=== PATIENT | male | born 1965 | race Caucasian/White ===

== ENCOUNTER 2017-12-14 14:14 | Inpatient (IN) ==
[2017-12-14] MEDS ORDERED: Vancomycin 0 MG in 0.9 % Sodium Chloride 250 ML IVPB SCH (15:00)
--- NOTE | 2017-12-14 15:04 | Podiatry History & Physical ---
History of Present Illness Chief complaint: Infection left foot HPI: Mr. Torres is a 52 year old male with long history of an ulcer in the plantar aspect first MTPJ left foot. Patient has used custom inserts in the past. Ulceration has callused over. Subsequent formation of abscess proximal to the original ulceration. Patient with no specific complaints of chest pain nausea vomiting fever or chills but pain with his left foot which is unusual given his history of neuropathy. His diabetes of uncertain control. 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 All Systems Reviewed: The remainder of the systems were reviewed and are negative, no chest pain nausea vomiting fever chills. No bowel or bladder dysfunction. Patient does have history of paresthesias and dysesthesias numbness tingling of both feet and legs secondary to peripheral neuropathy. Past Med Surg Social Fam HX - Past Medical History Medical history: diabetes Psychiatric history: no psych history - Social History Smoking Status: Never smoker Smokeless Tobacco Status: No Alcohol use: none Drug use: none Medications and Allergies metFORMIN [Glucophage] 500 mg PO DAILY 02/13/16 [History] Lovastatin [Mevacor] 20 mg PO HS 12/12/17 [History] Sulfamethoxazole/Trimeth DS [Bactrim DS] 1 each PO BID #14 tablet 12/12/17 [Rx] Tramadol HCl [Ultram] 50 mg PO TID PRN 5 Days #12 tab 12/12/17 [Rx] 3 Allergy/AdvReac Type Severity Reaction Status Date / Time No Known Allergies Allergy Verified 12/12/17 12:01 Physical Exam - Constitutional General appearance: average body habitus, mild distress - Head Head exam: Present: atraumatic - Expanded Lower Extremities Exam Foot/Toe exam: Present: swelling (Patient with large callus and plantar aspect of the first MTPJ. With superficial debridement ulceration noted to penetrates to the subcutaneous tissue. Patient has obvious intrinsic minus with loss of muscle tone and strength of the intrinsic musculature of both feet. Consequently he exhibits hammertoe deformity bilaterally.) - Neurological Exam Neurological exam: Present: oriented X3 Additional comments: Patient exhibits loss of protective sensation 2 point determination light touch and vibration from toes to tibia bilaterally. Ongoing paresthesias and dysesthesias. - Skin Additional comments: We observe an abscess on the plantar medial aspect proximal to the first metatarsophalangeal joint with a bulla formation. Spreading cellulitis noted plantar aspect of the foot to the dorsal medial aspect of the foot. Abscess is palpable with fluctuance - Vascular Lower Extremity Vascular: decreased fine/light touch (Pedal pulses are palpable. Skin is warm to touch no cyanosis of the digits no pallor and elevation no rubor on dependency) - Ankle & Foot Foot appearance: swelling Foot swelling location: plantar, medial Results - Labs Labs: All other labs normal. - Diagnostic results Ankle/Foot x-ray: pending Assessment and Plan (1) Abscess of foot without toes, left Current visit: Yes Status: Acute Assessment: #1 abscess of left foot secondary to diabetic foot ulcer #2 diabetes with peripheral neuropathy #3 comorbidities as outlined in history. Plan: #1 limited incision of the bulla carried out in clinic to obtain initial cultures aerobe and anaerobe #2 admit to for intravenous antibiotics and formal incision and drainage #3 request internal medicine consultation for management of diabetes and comorbidities #4 discussed risks versus the benefits as well as alternatives to formal incision and drainage. Risks include but are not limited to loss of toe toes foot leg life., failure of procedure to produce desired results. The need for further surgery, DVT/blood clots. Patient voices comprehension agrees to plan of care. Patient to be admitted immediately.
--- NOTE | 2017-12-14 16:10 | Internal Medicine Consult Note ---
<Janie Uribe - Last Filed: 12/14/17 15:59> Date of Encounter: 12/14/17 Time of Encounter: 15:59 - Assessment and plan (1) Abscess of foot without toes, left Current Visit: Yes Status: Acute Assessment and plan: Dr. Najera managing foot ulcer IV Zosyn and vancomycin Monitor labs daily CBC and BMP Vital signs every shift (2) Diabetes mellitus Current Visit: Yes Status: Acute Assessment and plan: Before meals at bedtime blood sugars Glucose is controlled at this time at 140 Mild Sliding scale insulin coverage-Humalog Lipid panel in a.m. Hemoglobin A1c in a.m. Qualifiers: Diabetes mellitus type: type 2 Diabetes mellitus complication status: with skin complications Qualified Code(s): E11.620 - Type 2 diabetes mellitus with diabetic dermatitis - Time Spent With Patient Total time spent is greater than 50% in coordination of care (as documented) at patient's floor/unit and/or counseling patient: Internal Medicine - CN: HPI - Data of Consult Patient: new to practice Consult date: 12/14/17 Requesting Physician: David Najera, - Consult Narrative Reason for consult: DM History of present illness: Mr. Torres is a 52 year old male with history of foot ulcer, peripheral neuropathy and diabetes mellitus type II. Hospitalist consult for patient regarding hyperglycemia. Patient here with diabetic foot ulcer on right foot. Patient indicated he had a foot ulcer that began 1 year ago after having either a cyst or a abscess on his foot. The patient indicated the first wound healed. This past Sunday he noticed pain in the foot and then by Sunday it was burning. 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 Cultures were obtained at that time. Patient saw Dr. Najera again today in the office and was sent for IV antibiotic therapy, and incision and drainage of the abscess. The patient apparently has uncontrolled DM at home, at times. The DM will be managed by hospitalists. 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 He typically is home for only 3 hours per day. Past Med Surg Social Fam HX - Past Medical History Medical history: diabetes, hyperlipidemia Psychiatric history: no psych history - Past Surgical History Surgical History: no surgical history - Social History Smoking Status: Current some day smoker Smokeless Tobacco Status: No Alcohol use: none Drug use: none - Family History Mother Hx Family Cardiac Disorders: Yes Father Hx Family Endocrine Disorder: Yes (DM) - Constitutional Constitutional: no fever(s) - EENT Eyes: no pain Nose, mouth and throat: no sore throat - Cardiovascular Cardiovascular ROS IM: no chest pain, no dyspnea, no lightheadedness, no palpitations - Respiratory Respiratory: no cough - Gastrointestinal Gastrointestinal: no abdominal pain - Musculoskeletal Musculoskeletal ROS IM: limited range of motion (Left foot wound) - Integumentary Integumentary IM: non-healing lesions (left foot) - Neurological Neurological ROS: no abnormal movements, no confusion, no weakness - Hematologic/Lymphatic Hematologic/Lymphatic: no easy bleeding - Allergic/Immunologic Allergic/Immunologic: no throat swelling, no wheezing Internal Medicine - CN: Meds Lovastatin [Mevacor] 20 mg PO HS 12/12/17 [History] Sulfamethoxazole/Trimeth DS [Bactrim DS] 1 each PO BID #14 tablet 12/12/17 [Rx] Tramadol HCl [Ultram] 50 mg PO TID PRN 5 Days #12 tab 12/12/17 [Rx] Gabapentin [Neurontin] 100 mg PO TID 12/14/17 [History] Glimepiride [Amaryl] 1 mg PO DAILY 12/14/17 [History] HYDROcodone/Acet 5/325 mg [[place] 5-325 mg] 1 tab PO Q8H PRN 12/14/17 [History] Metformin HCl [Glucophage] 1,000 mg PO BID 12/14/17 [History] Naproxen 375 mg PO BID 12/14/17 [History] 3 Allergy/AdvReac Type Severity Reaction Status Date / Time No Known Allergies Allergy Verified 12/12/17 12:01 Internal Medicine - CN: Exam - Constitutional Vitals: Temp Pulse Resp BP Pulse Ox 98.1 F 91 20 128/91 97 12/14/17 15:38 12/14/17 15:38 12/14/17 15:38 12/14/17 15:38 12/14/17 15:38 General appearance IM: Present: A&O X 3, obese - Head Head exam: Present: atraumatic, normocephalic - Eye Eye exam: Present: normal appearance. Absent: periorbital swelling Pupils: Present: PERRL - ENT ENT exam: Present: normal exam - Respiratory Respiratory exam: Present: CTAB - Cardiovascular Cardiovascular exam IM: Present: RRR, +S1 - GI/Abdominal GI/Abdominal exam IM: Present: normal bowel sounds, no peritoneal signs. Absent : tenderness - Rectal Rectal exam: Present: deferred - Extremities Exam Extremities exam IM: Present: normal inspection, tenderness (Left foot wound), radial pulses palpable and symmetrical - Expanded Upper Extremities Exam General: Present: normal inspection - Expanded Lower Extremities Exam Lower Leg exam: Present: tenderness (Left foot wound) - Neurological Exam Neurological exam: Present: alert, oriented X3 Internal Medicine - CN: Reslt - Impressions Impressions Foot X-Ray 12/14/17 14:57 IMPRESSION: No evidence of focal soft tissue abnormality or soft tissue gas. No specific radiographic evidence of osteomyelitis. D/ / Nicho Byrne MD / Nicho Byrne MD Interpreting Provider: Nicho Byrne MD Consult Discharge Plan - Plan Referrals: Maria C Cleary CNP [Primary Care Provider] - <Gino Monteiro - Last Filed: 12/15/17 08:42> Date of Encounter: 12/14/17 - Time Spent With Patient Total time spent is greater than 50% in coordination of care (as documented) at patient's floor/unit and/or counseling patient: Internal Medicine - CN: HPI - Data of Consult Requesting Physician: David Najera, - Consult Narrative History of present illness: Mr. Torres is a 52 year old male Internal Medicine - CN: Exam - Constitutional Vitals: Temp Pulse Resp BP Pulse Ox 98.1 F 73 15 110/71 96 12/15/17 06:58 12/15/17 06:58 12/15/17 06:58 12/15/17 06:58 12/15/17 06:58 Internal Medicine - CN: Reslt - Labs CBC & Chem 7: 12/15/17 05:53 12/15/17 05:53 Labs: Short CBC 12/14/17 12/15/17 Range/Units 15:52 05:53 WBC 8.2 6.8 (4.3-11.1) K/mcL Hgb 16.0 14.9 (12.9-16.9) g/dL Hct 44.9 43.7 (37.5-50.1) % Plt Count 168 170 (140-400) K/mcL Neutrophils # 5.9 4.5 (1.6-8.9) K/mcL BMP 12/14/17 12/15/17 15:52 05:53 Sodium 135 L 137 Potassium 4.0 4.0 Chloride 102 106 Carbon Dioxide 26 24 BUN 9 11 Creatinine 0.66 L 0.73 Glucose 140 H 168 H Calcium 9.2 8.5 L - ABG Interpretation ABG results: PT/INR, D-dimer PT 11.8 Seconds (9.4-12.1) 12/14/17 15:52 - Impressions Impressions Foot X-Ray 12/14/17 14:57 IMPRESSION: No evidence of focal soft tissue abnormality or soft tissue gas. No specific radiographic evidence of osteomyelitis. D/ / 12/14/2017 15:56:22 Nicho Byrne MD / derick Interpreting Provider: Nicho Byrne MD - Attending Attestation I have personally performed a face to face evaluation on this patient. I have reviewed and agree with the care plan provided by BUSINESS PROPOSAL REP Janie Uribe. History and Exam by me shows: Mr. Torres is a 52 year old male with history of foot ulcer, peripheral neuropathy, chronic tobacco dependence and diabetes mellitus type II pt was admitted by Dr. Najera for an I & D his foot abscess. We were asked to manage his abx and blood sugars. Pt did mention his recent HbA1C 8.1 Gen: A, A, O x 3 Foot: ulcer over Left foot 1ST MTP region, also noticed loculated fluid collection / abscess over plantar region a/p 1. Acute Left foot abscess I & D by Dr. Najera empirical abx Zosyn and Vanc 2. DM2 Check HbA1C started him on ISS 3. Tobacco dependence counseled to quit on nicotine patch
[2017-12-14 16:12] LABS: Basophils # 0.1 K/mcL (0.0-0.2); Basophils % 1.1 %; Eosinophils # 0.1 K/mcL (0.0-0.6); Eosinophils % 1.3 %; Hematocrit 44.9 % (37.5-50.1); Immature Granulocytes % 0.4 % (0-4); Lymphocytes # 1.6 K/mcL (0.6-4.6); Lymphocytes % 19.1 %; Mean Corpuscular HGB Conc 35.6 g/dL (31.6-35.5); Mean Corpuscular Volume 92.6 fL (83.0-100.0); Mean Platelet Volume 10.7 fL (9.4-12.4); Monocytes # 0.6 K/mcL (0.0-1.3); Monocytes % 6.7 %; Neutrophils # 5.9 K/mcL (1.6-8.9); Platelet Count 168 K/mcL (140-400); Red Blood Count 4.85 M/mcL (4.19-5.50); Red Cell Distribution Width 12.1 % (11.5-14.5); Segmented Neutrophils % 71.4 %
[2017-12-14 16:17] LABS: INR 1.1; Prothrombin Time 11.8 Seconds (9.4-12.1)
[2017-12-14 16:24] LABS: BUN/Creatinine Ratio 14 (6-26); Blood Urea Nitrogen 9 mg/dL (6-20); Calcium 9.2 mg/dL (8.6-10.3); Carbon Dioxide 26 mEq/L (23-29); Chloride 102 mEq/L (98-107); Glucose 140 mg/dL (70-105); Osmolality,Calculated 281 (280-300); Sodium 135 mEq/L (136-145); eGFR For African Americans > 60 (> 60); eGFR For Non-African Americans > 60 (> 60)
[2017-12-14] MEDS ORDERED: Dextrose Gel 15 GM/37.5 ML TUBE PO PRN ×2 (16:35)
[2017-12-14] MEDS ORDERED: *HR* Dextrose 50 % in Water (Syg) 50 ML SYRINGE IVP PRN (16:35)
[2017-12-14] MEDS ORDERED: D5% in Water 1,000 ML IVC PRN (16:35)
[2017-12-14] MEDS ORDERED: Naloxone 0.4 MG/ML INJ IVP PRN (17:28)
[2017-12-14] MEDS: 0.9 % Sodium Chloride 1,000 ML IVC SCH (17:33)
[2017-12-14] MEDS: Piperacillin/Tazobactam 3.375 GM in 0.9 % Sodium Chloride Mini Bag 100 ML IVPB SCH (17:33)
[2017-12-14] MEDS: Nicotine 21 MG PATCH.TD24 TD SCH (19:55)
[2017-12-14] MEDS: Gabapentin 100 MG CAPSULE PO SCH (21:02)
[2017-12-14] MEDS: *HR* HYDROcodone/Acet 5/325 mg TABLET PO PRN (21:50)
[2017-12-14] MEDS: Insulin LISPRO 300 UNITS/3 ML VIAL SQ SCH (21:53)
[2017-12-15] MEDS: Piperacillin/Tazobactam 3.375 GM in 0.9 % Sodium Chloride Mini Bag 100 ML IVPB SCH ×3 (01:27→19:01)
[2017-12-15] MEDS: traMADol 50 MG TABLET PO PRN ×2 (03:57→21:30)
[2017-12-15 06:48] LABS: Basophils # 0.1 K/mcL (0.0-0.2); Basophils % 0.7 %; Eosinophils # 0.1 K/mcL (0.0-0.6); Eosinophils % 2.1 %; Hematocrit 43.7 % (37.5-50.1); Hemoglobin 14.9 g/dL (12.9-16.9); Immature Granulocytes % 0.3 % (0-4); Lymphocytes # 1.5 K/mcL (0.6-4.6); Lymphocytes % 21.7 %; Mean Corpuscular HGB Conc 34.1 g/dL (31.6-35.5); Mean Corpuscular Volume 93.8 fL (83.0-100.0); Mean Platelet Volume 10.8 fL (9.4-12.4); Monocytes # 0.6 K/mcL (0.0-1.3); Monocytes % 9.1 %; Neutrophils # 4.5 K/mcL (1.6-8.9); Platelet Count 170 K/mcL (140-400); Red Blood Count 4.66 M/mcL (4.19-5.50); Red Cell Distribution Width 12.2 % (11.5-14.5); Segmented Neutrophils % 66.1 %
[2017-12-15 07:10] LABS: BUN/Creatinine Ratio 15 (6-26); Blood Urea Nitrogen 11 mg/dL (6-20); Calcium 8.5 mg/dL (8.6-10.3); Carbon Dioxide 24 mEq/L (23-29); Chloride 106 mEq/L (98-107); Chol/HDL Ratio 4.9 (0-4.9); Glucose 168 mg/dL (70-105); Osmolality,Calculated 287 (280-300); Sodium 137 mEq/L (136-145); eGFR For African Americans > 60 (> 60); eGFR For Non-African Americans > 60 (> 60)
[2017-12-15] MEDS: Insulin LISPRO 300 UNITS/3 ML VIAL SQ SCH ×4 (07:28→21:33)
--- NOTE | 2017-12-15 07:46 | Anesthesia Evaluation PreOp ---
Date of Encounter: 12/15/17 Time of Encounter: 14:05 - Past History Planned Operation: I & D Left Foot Cardiac History: Hyperlipidemia Pulmonary History: Smoker (35 years) BRAIN SURGEON History: Denies Any Significant HX Other Medical History: Diabetes Type II Anesthesia History: No Prior Anesthetic Complications, Past Anesthesia Alcohol Use: none Drug use: none Medications and Allergies Lovastatin [Mevacor] 20 mg PO HS 12/12/17 [History] Sulfamethoxazole/Trimeth DS [Bactrim DS] 1 each PO BID #14 tablet 12/12/17 [Rx] Tramadol HCl [Ultram] 50 mg PO TID PRN 5 Days #12 tab 12/12/17 [Rx] Gabapentin [Neurontin] 100 mg PO TID 12/14/17 [History] Glimepiride [Amaryl] 1 mg PO DAILY 12/14/17 [History] HYDROcodone/Acet 5/325 mg [[place] 5-325 mg] 1 tab PO Q8H PRN 12/14/17 [History] Metformin HCl [Glucophage] 1,000 mg PO BID 12/14/17 [History] Naproxen 375 mg PO BID 12/14/17 [History] 3 Allergy/AdvReac Type Severity Reaction Status Date / Time No Known Allergies Allergy Verified 12/12/17 12:01 - Meds/Allergy Pre-op Review Medications Reviewed: Yes Allergies Reviewed: Yes Beta Blockers on Current Med List: No Anesthesia Results - Labs 12/15/17 05:53 12/15/17 05:53 Anesthesia Exam Vital Signs/O2 Sat/Glucose, Most Recent Temp Pulse Resp BP Pulse Ox 98.1 F 73 15 110/71 96 12/15/17 06:58 12/15/17 06:58 12/15/17 06:58 12/15/17 06:58 12/15/17 06:58 Blood Glucose* 175 Height: 6'2''/1.88m Weight: 288 lbs/130.7 kg NPO (# of Hours): 8 Pain Scale: 0 Pain Scale Used: Numeric (1 - 10) - HEENT Pupil (Motor): EOMI Mallampati: III Teeth: Poor dentition Oral Opening: Greater than 3 - BRAIN SURGEON LOC: Oriented BRAIN SURGEON Motor: Normal RUE, Normal LUE, Normal RLE, Normal LLE, Normal Face BRAIN SURGEON Sensory: Normal: RUE, LUE, Face, Deficit: RLE, LLE - Cardiac Rhythm: Regular Murmur: None - Pulmonary Breath Sounds: bilateral Clear Respiratory Effort: Symmetrical Anesthesia Assess/Plan ASA Score: 3 Modified Anirudh Scale for Level of Consciousness: Cooperative, oriented, and tranquil Anesthetic Plan: MAC Monitoring Plan: Standard Monitors
[2017-12-15 07:59] LABS: Estimated Average Glucose 200 mg/dl; Hemoglobin A1C 8.6 %
[2017-12-15] MEDS: Gabapentin 100 MG CAPSULE PO SCH ×3 (10:00→21:30)
[2017-12-15] MEDS: *HR* HYDROcodone/Acet 5/325 mg TABLET PO PRN ×2 (10:00→19:04)
--- NOTE | 2017-12-15 14:57 | Internal Med Progress Note ---
Date of Encounter: 12/15/17 Time of Encounter: 11:00 - Assessment and plan (1) Diabetes mellitus Current Visit: Yes Status: Acute Assessment and plan: Patient has reasonable blood sugar control presently with current regimen. Continue to monitor. All other issues as per primary service. Qualifiers: Diabetes mellitus type: type 2 Diabetes mellitus complication status: with skin complications Qualified Code(s): E11.620 - Type 2 diabetes mellitus with diabetic dermatitis - Time Spent With Patient Total time spent is greater than 50% in coordination of care (as documented) at patient's floor/unit and/or counseling patient: - Subjective Interval history: Mr. Torres is a 52 year old male with history of foot ulcer, peripheral neuropathy and diabetes mellitus type II. Hospitalist consult for patient regarding hyperglycemia. Patient here with diabetic foot ulcer on right foot. Patient indicated he had a foot ulcer that began 1 year ago after having either a cyst or a abscess on his foot. The patient indicated the first wound healed. This past Sunday he noticed pain in the foot and then by Sunday it was burning. 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 Cultures were obtained at that time. Patient saw Dr. Najera again today in the office and was sent for IV antibiotic therapy, and incision and drainage of the abscess. The patient apparently has uncontrolled DM at home, at times. The DM will be managed by hospitalists. 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 He typically is home for only 3 hours per day. 12/15: Patient states he is feeling well. Blood sugars are running in mid 100 range. Patient states he is comfortable. Eating well. - Constitutional Vitals: Temp Pulse Resp BP Pulse Ox 97.9 F 74 15 110/71 96 12/15/17 10:36 12/15/17 10:36 12/15/17 10:36 12/15/17 10:36 12/15/17 10:36 General appearance: Present: A&O X 3, obese - Head Head exam: Present: atraumatic, normocephalic - Eye Eye exam: Present: PERRL, conjuntiva pink, sclera anicteric Pupils: Present: PERRL - Neck Neck exam general surgery: Present: supple, trachea midline. Absent: lymphadenopathy - Respiratory Respiratory exam: Present: CTAB. Absent: accessory muscle use, rales, rhonchi, wheezes - Cardiovascular Cardiovascular exam: Present: RRR, +S1, +S2. Absent: diastolic murmur, gallop, rubs, systolic murmur - GI/Abdominal GI/Abdominal exam: Present: normal bowel sounds, soft, no peritoneal signs. Absent: distended, tenderness - Extremities Exam Extremities exam: Present: warm, radial pulses palpable and symmetrical. Absent : calf tenderness, cyanotic, pedal edema Additional comments: Left foot is covered with dressing - Neurological Exam Neurological exam: Present: CN II-XII intact, oriented X3, no focal deficits. Absent: pronater drift, facial droop, speech deficit - Skin Skin exam: Present: dry, intact Internal Medicine: Result - Labs CBC & Chem 7: 12/15/17 05:53 12/15/17 05:53 Labs: Short CBC 12/14/17 12/15/17 Range/Units 15:52 05:53 WBC 8.2 6.8 (4.3-11.1) K/mcL Hgb 16.0 14.9 (12.9-16.9) g/dL Hct 44.9 43.7 (37.5-50.1) % Plt Count 168 170 (140-400) K/mcL Neutrophils # 5.9 4.5 (1.6-8.9) K/mcL BMP 12/14/17 12/15/17 15:52 05:53 Sodium 135 L 137 Potassium 4.0 4.0 Chloride 102 106 Carbon Dioxide 26 24 BUN 9 11 Creatinine 0.66 L 0.73 Glucose 140 H 168 H Calcium 9.2 8.5 L - ABG Interpretation ABG results: PT/INR, D-dimer PT 11.8 Seconds (9.4-12.1) 12/14/17 15:52 - Impressions Impressions Foot X-Ray 12/14/17 14:57 IMPRESSION: No evidence of focal soft tissue abnormality or soft tissue gas. No specific radiographic evidence of osteomyelitis. D/ / 12/14/2017 15:56:22 Nicho Byrne MD / derick Interpreting Provider: Nicho Byrne MD Consult Discharge Plan - Plan Referrals: Maria C Cleary CNP [Primary Care Provider] -
--- NOTE | 2017-12-15 15:34 | Podiatry Consult Note ---
Date of Encounter: 12/15/17 Time of Encounter: 15:31 Assessment and Plan (1) Abscess of foot without toes, left Current visit: Yes Status: Acute The patient was instructed that he needs an incision and drainage of the abscess of his left foot. The patient was instructed that this may require multiple procedures and multiple washouts. Patient was understandable. Patient relates that he is ready to undergo surgical intervention as he has pain from this abscess.Patient was informed of the risks and complications of surgery. These may include but are not limited to the following; nerve damage, numbness, tingling, RSD/CRPS, loss of motor function, loss of toe, loss of limb , loss of life, ischemia, wound healing issues, infection, scarring, keloid formation, continued pain, arthritis, non-union, mal-union, prominent hardware, displaced hardware, reaction to hardware, the need to remove hardware, bruising , continued limp, the need for future surgery, over correction, under correction , chronic swelling, the need for physical therapy, stiffness of joints, ulceration, slow healing, wound dehiscence, reaction to implant, reaction to sutures. The patient was informed of the possible conservative treatments available which may include but are not limited to the following: Orthotics, bracing, non -weight bearing, physical therapy, padding, taping, steroid injections, NSAIDS, casting. The patient was given the option to seek a second opinion. It was explained that surgery is an art and not an exact science therefore results cannot be guaranteed. All the patients questions and concerns were addressed. Patient agrees to have the surgery despite the possible risks and complications. Absolutely no guarantees were given or implied. History of Present Illness Chief complaint: Left foot abscess HPI: Mr. Torres is a 52 year old male who has a left foot abscess. 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 Patient was referred to me by Dr. Najera. Past Med Surg Social Fam HX - Past Medical History Medical history: diabetes, hyperlipidemia Psychiatric history: no psych history - Past Surgical History Surgical History: no surgical history - Social History Smoking Status: Current some day smoker Smokeless Tobacco Status: No Alcohol use: none Drug use: none - Family History Mother Hx Family Cardiac Disorders: Yes Father Hx Family Endocrine Disorder: Yes (DM) Medications and Allergies Lovastatin [Mevacor] 20 mg PO HS 12/12/17 [History] Sulfamethoxazole/Trimeth DS [Bactrim DS] 1 each PO BID #14 tablet 12/12/17 [Rx] Tramadol HCl [Ultram] 50 mg PO TID PRN 5 Days #12 tab 12/12/17 [Rx] Gabapentin [Neurontin] 100 mg PO TID 12/14/17 [History] Glimepiride [Amaryl] 1 mg PO DAILY 12/14/17 [History] HYDROcodone/Acet 5/325 mg [[place] 5-325 mg] 1 tab PO Q8H PRN 12/14/17 [History] Metformin HCl [Glucophage] 1,000 mg PO BID 12/14/17 [History] Naproxen 375 mg PO BID 12/14/17 [History] 3 Allergy/AdvReac Type Severity Reaction Status Date / Time No Known Allergies Allergy Verified 12/12/17 12:01 All Systems Reviewed: The remainder of the systems were reviewed and are negative Physical Exam - Constitutional Vitals: Temp Pulse Resp BP Pulse Ox 97.9 F 74 15 110/71 96 12/15/17 10:36 12/15/17 10:36 12/15/17 10:36 12/15/17 10:36 12/15/17 10:36 General appearance: average body habitus, mild distress Exam: Constitutional General appearance: average body habitus, mild distress - Head Head exam: Present: atraumatic - Expanded Lower Extremities Exam Foot/Toe exam: Present: swelling ,ulceration noted to which penetrates to the subcutaneous tissue. Patient has obvious intrinsic loss of muscle tone and strength of the intrinsic musculature of both feet. Consequently he exhibits hammertoe deformity bilaterally.) - Neurological Exam Neurological exam: Present: oriented X3 Additional comments: Patient exhibits loss of protective sensation 2 point determination light touch and vibration from toes to tibia bilaterally. Ongoing paresthesias and dysesthesias. - Skin Additional comments: We observe an abscess on the plantar medial aspect proximal to the first metatarsophalangeal joint with a abscess and bulla formation. Spreading cellulitis noted plantar aspect of the foot to the dorsal medial aspect of the foot. Abscess is palpable with fluctuance - Vascular Lower Extremity Vascular: decreased fine/light touch (Pedal pulses are palpable. Skin is warm to touch no cyanosis of the digits no pallor and elevation no rubor on dependency) - Ankle & Foot Foot appearance: swelling Foot swelling location: plantar, medial Results - Labs Result Diagrams: 12/15/17 05:53 12/15/17 05:53 Labs: Abnormal lab results ESR 46 mm/hr (0-10) H 12/14/17 15:52 Glucose 168 mg/dL (70-105) H 12/15/17 05:53 POC Glucose 113 mg/dL (70-99) H 12/14/17 21:52 Hemoglobin A1c 8.6 % (-5.6) H 12/15/17 05:53 Calcium 8.5 mg/dL (8.6-10.3) L 12/15/17 05:53 C-Reactive Protein 64 mg/L (Less than 10) H 12/14/17 15:52 Triglycerides 175 mg/dL (< 150) H 12/15/17 05:53 VLDL Cholesterol, Calc 35 mg/dL (< 31) H 12/15/17 05:53 HDL Cholesterol 27 mg/dL (40-59) L 12/15/17 05:53 H & H 12/14/17 12/15/17 Range/Units 15:52 05:53 Hgb 16.0 14.9 (12.9-16.9) g/dL Hct 44.9 43.7 (37.5-50.1) % All other labs normal. Consult Discharge Plan - Plan Referrals: Maria C Cleary CNP [Primary Care Provider] -
[2017-12-15] MEDS ORDERED: *HR* Midazolam HCl 2 MG/2 ML VIAL ONE (15:35)
[2017-12-15] MEDS ORDERED: Propofol 500 MG/50 ML INFUS..BTL ONE (15:35)
[2017-12-15] MEDS ORDERED: Lidocaine 1% 20 ML MDV ONE ×2 (15:40→16:03)
--- NOTE | 2017-12-15 16:52 | Anesthesia Evaluation Post Op ---
Date of Encounter: 12/15/17 Time of Encounter: 16:51 - Vital Signs Vital Signs: 3 Vital Signs BP 101/67 Pulse 71 Resp 18 O2 Sat 95% - Lungs Lungs: Clear Ascult./Percussion - Airway Airway: Non-obstructed - Cardiovascular Regular Rate - Mental Status Mental Status: Asleep with brisk response to light stimulation - Pain Pain Scale: 0 Pain Scale used: Numeric (1 - 10) - Nausea Vomiting Nausea Vomiting: Not Present - Hydration Hydration: NPO, Has not voided - Discharge PostOp Status: Transfer Patient to floor
[2017-12-15] MEDS: Nicotine 21 MG PATCH.TD24 TD SCH (19:00)
[2017-12-15] MEDS: 0.9 % Sodium Chloride 1,000 ML IVC SCH ×2 (19:30→21:29)
[2017-12-16] MEDS: Piperacillin/Tazobactam 3.375 GM in 0.9 % Sodium Chloride Mini Bag 100 ML IVPB SCH ×3 (02:11→20:07)
[2017-12-16] MEDS: *HR* HYDROcodone/Acet 5/325 mg TABLET PO PRN ×2 (04:26→23:01)
[2017-12-16 05:34] LABS: Basophils # 0.1 K/mcL (0.0-0.2); Basophils % 0.9 %; Eosinophils # 0.2 K/mcL (0.0-0.6); Eosinophils % 2.3 %; Hematocrit 41.5 % (37.5-50.1); Hemoglobin 14.2 g/dL (12.9-16.9); Immature Granulocytes % 0.3 % (0-4); Lymphocytes # 2.2 K/mcL (0.6-4.6); Lymphocytes % 29.6 %; Mean Corpuscular HGB Conc 34.2 g/dL (31.6-35.5); Mean Corpuscular Hemoglobin 31.8 pg (28.0-33.3); Mean Platelet Volume 10.5 fL (9.4-12.4); Monocytes # 0.6 K/mcL (0.0-1.3); Monocytes % 8.4 %; Neutrophils # 4.4 K/mcL (1.6-8.9); Platelet Count 163 K/mcL (140-400); Red Blood Count 4.46 M/mcL (4.19-5.50); Red Cell Distribution Width 12.2 % (11.5-14.5); Segmented Neutrophils % 58.5 %
[2017-12-16 05:57] LABS: BUN/Creatinine Ratio 19 (6-26); Blood Urea Nitrogen 15 mg/dL (6-20); Calcium 8.2 mg/dL (8.6-10.3); Carbon Dioxide 26 mEq/L (23-29); Chloride 105 mEq/L (98-107); Glucose 178 mg/dL (70-105); Osmolality,Calculated 289 (280-300); Potassium 3.9 mEq/L (3.5-5.1); Sodium 137 mEq/L (136-145); eGFR For African Americans > 60 (> 60); eGFR For Non-African Americans > 60 (> 60)
[2017-12-16] MEDS: Insulin LISPRO 300 UNITS/3 ML VIAL SQ SCH ×4 (08:12→20:08)
[2017-12-16] MEDS: Gabapentin 100 MG CAPSULE PO SCH ×3 (08:21→20:09)
[2017-12-16] MEDS: traMADol 50 MG TABLET PO PRN (12:04)
--- NOTE | 2017-12-16 12:07 | Internal Med Progress Note ---
Date of Encounter: 12/16/17 Time of Encounter: 10:00 - Assessment and plan (1) Diabetes mellitus Current Visit: Yes Status: Acute Assessment and plan: Patient has reasonable blood sugar control presently with current regimen. Continue to monitor. All other issues as per primary service. Qualifiers: Diabetes mellitus type: type 2 Diabetes mellitus complication status: with skin complications Qualified Code(s): E11.620 - Type 2 diabetes mellitus with diabetic dermatitis - Time Spent With Patient Total time spent is greater than 50% in coordination of care (as documented) at patient's floor/unit and/or counseling patient: - Subjective Interval history: Mr. Torres is a 52 year old male with history of foot ulcer, peripheral neuropathy and diabetes mellitus type II. Hospitalist consult for patient regarding hyperglycemia. Patient here with diabetic foot ulcer on right foot. Patient indicated he had a foot ulcer that began 1 year ago after having either a cyst or a abscess on his foot. The patient indicated the first wound healed. This past Sunday he noticed pain in the foot and then by Sunday it was burning. Patient saw his chief service observer on and another abscess was discovered. Cultures were obtained at that time. Patient saw Dr. Najera again today in the office and was sent for IV antibiotic therapy, and incision and drainage of the abscess. The patient apparently has uncontrolled DM at home, at times. The DM will be managed by hospitalists. 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 He typically is home for only 3 hours per day. 12/16: Patient states he is feeling well. Blood sugars are running in mid 100 range. Patient states he is comfortable. Eating well. - Constitutional Vitals: Temp Pulse Resp BP Pulse Ox 97.7 F 68 15 122/79 95 12/16/17 10:33 12/16/17 10:33 12/16/17 10:33 12/16/17 10:33 12/16/17 10:33 General appearance: Present: A&O X 3, obese - Head Head exam: Present: atraumatic, normocephalic - Eye Eye exam: Present: PERRL, conjuntiva pink, sclera anicteric Pupils: Present: PERRL - Neck Neck exam general surgery: Present: supple, trachea midline. Absent: lymphadenopathy - Respiratory Respiratory exam: Present: CTAB. Absent: accessory muscle use, rales, rhonchi, wheezes - Cardiovascular Cardiovascular exam: Present: RRR, +S1, +S2. Absent: diastolic murmur, gallop, rubs, systolic murmur - GI/Abdominal GI/Abdominal exam: Present: normal bowel sounds, soft, no peritoneal signs. Absent: distended, tenderness - Extremities Exam Extremities exam: Present: warm, radial pulses palpable and symmetrical. Absent : calf tenderness, cyanotic, pedal edema Additional comments: Left foot Vac - Neurological Exam Neurological exam: Present: CN II-XII intact, oriented X3, no focal deficits. Absent: pronater drift, facial droop, speech deficit - Skin Skin exam: Present: dry, intact Internal Medicine: Result - Labs CBC & Chem 7: 12/16/17 05:08 12/16/17 05:08 Labs: Short CBC 12/16/17 Range/Units 05:08 WBC 7.5 (4.3-11.1) K/mcL Hgb 14.2 (12.9-16.9) g/dL Hct 41.5 (37.5-50.1) % Plt Count 163 (140-400) K/mcL Neutrophils # 4.4 (1.6-8.9) K/mcL BMP 12/16/17 05:08 Sodium 137 Potassium 3.9 Chloride 105 Carbon Dioxide 26 BUN 15 Creatinine 0.79 Glucose 178 H Calcium 8.2 L - ABG Interpretation ABG results: PT/INR, D-dimer PT 11.8 Seconds (9.4-12.1) 12/14/17 15:52 - VTE Documentation of Mechanical Device: Intermittent pneumatic compression device Consult Discharge Plan - Plan Referrals: Maria C Cleary, [employer]PER [Primary Care Provider] -
--- NOTE | 2017-12-16 17:47 | Operative Note ---
Date of procedure: 12/15/17 Pre-op diagnosis: Left foot abscess with ulceration Post-op diagnosis: same Procedure: Incision and drainage/debridement of necrotic nonviable tissue, left foot. Implants: None Anesthesia: MAC Surgeon: Wenceslao Whittington Was there an pizza hut assistant present: No Estimated blood loss (cc): 5 Specimen: Cultures Condition: stable Disposition: PACU Procedure in Detail: The patient was administered IV antibiotics. The patient was transported to the operative room and placed on operating table. Following anesthesia the extremity was scrubbed prepped and draped in the usual aseptic fashion. A timeout was performed. An incision was made and deepened through subcutaneous tissue with care taken to identify and retract all vital neurovascular structures. The incision was along the plantar medial aspect of the foot. The incision was approximately 3 cm in length along the plantar aspect of the abscess site. As the incision was deepened purulence was expressed and cultured. There is noted to be necrotic nonviable tissue area the , necrotic, nonviable tissue was sharply debrided with a 15 blade scalpel and a Appetite[employer]ix debrider. After the debridement was performed consisting of epidermis, dermis, subcutaneous, fascia the site was irrigated with copious amounts of normal saline and partially closed on the distal aspect of the incision. A small opening was left in the proximal portion of the incision for a wound VAC. A wound VAC was placed. The attention was then directed to the ulceration site sub-first metatarsal phalangeal joint, left, that was opened a few days prior in clinic by Dr. Najera and debrided. The site was noted to be small and approximately 4 mm in diameter. The periphery of the ulceration site was debrided of all necrotic, nonviable tissue. The debridement consisted of dermis, epidermis, subcutaneous , fascia. 2 semi-elliptical converging incisions were made surrounding the ulceration to aid in closure. The site was then irrigated with copious amounts of normal saline. Delayed primary closure was performed. The site was dressed with Adaptic, 4 x 4. The patient tolerated the procedure and anesthesia well and was transported to the recovery room with vital signs stable and vascular status intact to both feet. The patient will need to remain nonweightbearing. The patient will need at least 2 weeks of IV antibiotics. No bony involvement was noted. We will await further cultures. The wound VAC will need to be changed every 2 days or at least every 72 hours.
[2017-12-16] MEDS: 0.9 % Sodium Chloride 1,000 ML IVC SCH (19:52)
[2017-12-16] MEDS: Nicotine 21 MG PATCH.TD24 TD SCH (20:07)
--- NOTE | 2017-12-17 00:07 | Podiatry Progress Note ---
Date of Encounter: 12/16/17 Time of Encounter: 12:00 - Assessment and Plan (1) Abscess of foot without toes, left Current Visit: Yes Status: Acute The patient will need to remain nonweightbearing. The patient will need his wound VAC changed on Sunday morning by the nursing staff. Patient will likely need a pain pill prior to. Patient will possibly need another washout on Sunday. The patient will need at least 2 weeks of IV antibiotic therapy due to the severity of the infection. Patient will need to stay off work until the site heels which will be at least 3 weeks. The patient will require ongoing wound VAC changes Sunday, Sunday, Sunday. There is a slight chance that the wound VAC will be removed prior to discharge. Currently awaiting cultures. Subjective Principal diagnosis: Left foot abscess Interval history: Patient relates mildly painful incision sites. Patient denies any new signs or symptoms. Objective - Vital Signs Vital Signs: Vital Signs Temp Pulse Resp BP Pulse Ox 12/16/17 23:40 98.7 F 92 17 128/76 93 12/16/17 20:33 95 12/16/17 19:25 98.5 F 95 17 130/78 95 12/16/17 14:33 98.1 F 69 18 119/73 94 12/16/17 10:33 97.7 F 68 15 122/79 95 12/16/17 07:30 97.8 F 68 18 104/68 94 12/16/17 04:21 97.8 F 70 16 117/74 94 Intake and Output 12/16/17 12/16/17 12/17/17 15:59 23:59 07:59 Intake Total 570 / 570 220 / 220 Output Total 325 / 325 2200 / 2200 Balance 245 / 245 -1979 / Intake: IV Fluids 250 / 250 100 / 100 Zosyn 3.375 GM In 0.9 % Sodium 100 / 100 Chloride (Mini-Bag +) 100 ML @ 25 mls/hr IVPB Q8H JORGE Rx#: [id number] Vancocin 1,500 MG In 0.9 % 250 / 250 Sodium Chloride 250 ML @ 166.67 mls/hr IVPB Q12H JORGE Rx#: [id number] Oral 320 / 320 120 / 120 Output: Urine 325 / 325 2200 / 2200 Other: Meal Lunch Dinner Percent of Meal Consumed 100% 50% # Voids 3 Blood Glucose* 208 186 - Exam Exam: VAC intact, neurovascular status intact, awaiting cultures, decreased erythema. - Lab Result Diagrams: 12/17/17 06:03 12/17/17 06:03 Labs: Abnormal lab results ESR 46 mm/hr (0-10) H 12/14/17 15:52 Glucose 178 mg/dL (70-105) H 12/16/17 05:08 POC Glucose 152 mg/dL (70-99) H 12/16/17 16:05 Hemoglobin A1c 8.6 % (-5.6) H 12/15/17 05:53 Calcium 8.2 mg/dL (8.6-10.3) L 12/16/17 05:08 C-Reactive Protein 64 mg/L (Less than 10) H 12/14/17 15:52 Triglycerides 175 mg/dL (< 150) H 12/15/17 05:53 VLDL Cholesterol, Calc 35 mg/dL (< 31) H 12/15/17 05:53 HDL Cholesterol 27 mg/dL (40-59) L 12/15/17 05:53 - VTE Documentation of Mechanical Device: Intermittent pneumatic compression device Consult Discharge Plan - Plan Referrals: Maria C Cleary, ESAU [Primary Care Provider] -
[2017-12-17] MEDS: Piperacillin/Tazobactam 3.375 GM in 0.9 % Sodium Chloride Mini Bag 100 ML IVPB SCH ×2 (01:59→10:43)
[2017-12-17] MEDS: traMADol 50 MG TABLET PO PRN ×2 (04:36→14:50)
[2017-12-17] MEDS: 0.9 % Sodium Chloride 1,000 ML IVC SCH (06:04)
[2017-12-17 07:07] LABS: Basophils # 0.1 K/mcL (0.0-0.2); Basophils % 0.9 %; Eosinophils # 0.2 K/mcL (0.0-0.6); Eosinophils % 2.6 %; Hematocrit 41.8 % (37.5-50.1); Hemoglobin 14.3 g/dL (12.9-16.9); Immature Granulocytes % 0.3 % (0-4); Lymphocytes % 26.7 %; Mean Corpuscular HGB Conc 34.2 g/dL (31.6-35.5); Mean Corpuscular Hemoglobin 31.5 pg (28.0-33.3); Mean Corpuscular Volume 92.1 fL (83.0-100.0); Mean Platelet Volume 10.9 fL (9.4-12.4); Monocytes # 0.6 K/mcL (0.0-1.3); Monocytes % 7.7 %; Neutrophils # 4.6 K/mcL (1.6-8.9); Platelet Count 172 K/mcL (140-400); Red Blood Count 4.54 M/mcL (4.19-5.50); Red Cell Distribution Width 12.2 % (11.5-14.5); Segmented Neutrophils % 61.8 %
[2017-12-17 07:21] LABS: BUN/Creatinine Ratio 18 (6-26); Blood Urea Nitrogen 12 mg/dL (6-20); Calcium 8.6 mg/dL (8.6-10.3); Carbon Dioxide 25 mEq/L (23-29); Chloride 105 mEq/L (98-107); Glucose 227 mg/dL (70-105); Osmolality,Calculated 291 (280-300); Potassium 4.2 mEq/L (3.5-5.1); Sodium 137 mEq/L (136-145); eGFR For African Americans > 60 (> 60); eGFR For Non-African Americans > 60 (> 60)
[2017-12-17] MEDS: Insulin LISPRO 300 UNITS/3 ML VIAL SQ SCH ×4 (09:30→21:45)
[2017-12-17] MEDS: Gabapentin 100 MG CAPSULE PO SCH ×3 (09:31→20:11)
[2017-12-17] MEDS: *HR* HYDROcodone/Acet 5/325 mg TABLET PO PRN ×2 (09:40→17:23)
--- NOTE | 2017-12-17 16:28 | Electrocardiograph Report ---
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
--- NOTE | 2017-12-17 16:52 | Internal Med Progress Note ---
Date of Encounter: 12/17/17 Time of Encounter: 16:49 - Assessment and plan (1) Abscess of foot without toes, left Current Visit: Yes Status: Acute Assessment and plan: s/p I & D Wound vac on Wound cx no growth so far Talked to Sessions about abx choice will d/c him to ECF with IV Levaquin x 2 weeks course with PO Bactrim x 2 weeks Abx prescription given to CM Will sign off for now.. please call use, if you have any questions regarding discharge (2) Diabetes mellitus Current Visit: Yes Status: Acute Assessment and plan: Improved and stable BS HbA1C 8.6 Cont ISS Can use PO meds when he goes home Qualifiers: Diabetes mellitus type: type 2 Diabetes mellitus complication status: with skin complications Qualified Code(s): E11.620 - Type 2 diabetes mellitus with diabetic dermatitis - Time Spent With Patient Total time spent is greater than 50% in coordination of care (as documented) at patient's floor/unit and/or counseling patient: - Subjective Interval history: Pt states he is feeling lot better Denied any CP / SOB His Foot pain also better No fever / chills - Constitutional Vitals: Temp Pulse Resp BP Pulse Ox 98.0 F 77 16 121/70 96 12/17/17 16:08 12/17/17 16:08 12/17/17 16:08 12/17/17 16:08 12/17/17 16:08 General appearance: Present: A&O X 3, obese - Head Head exam: Present: atraumatic, normal inspection - Neck Neck exam general surgery: Present: supple - Respiratory Respiratory exam: Present: decreased breath sounds. Absent: rales, respiratory distress, rhonchi, wheezes - Cardiovascular Cardiovascular exam: Present: RRR, +S1, +S2. Absent: tachycardia - GI/Abdominal GI/Abdominal exam: Present: normal bowel sounds, soft. Absent: rebound, rigid, tenderness - Extremities Exam Extremities exam: Absent: calf tenderness, pedal edema, tenderness Additional comments: Wound vac on Rt foot..Improved erythema and swelling of lt foot - Back Exam Back exam: Absent: CVA tenderness (L), CVA tenderness (R) - Neurological Exam Neurological exam: Present: alert, oriented X3 Internal Medicine: Result - Labs CBC & Chem 7: 12/17/17 06:03 12/17/17 06:03 Labs: Short CBC 12/17/17 Range/Units 06:03 WBC 7.4 (4.3-11.1) K/mcL Hgb 14.3 (12.9-16.9) g/dL Hct 41.8 (37.5-50.1) % Plt Count 172 (140-400) K/mcL Neutrophils # 4.6 (1.6-8.9) K/mcL BMP 12/17/17 06:03 Sodium 137 Potassium 4.2 Chloride 105 Carbon Dioxide 25 BUN 12 Creatinine 0.65 L Glucose 227 H Calcium 8.6 - ABG Interpretation ABG results: PT/INR, D-dimer PT 11.8 Seconds (9.4-12.1) 12/14/17 15:52 - VTE Documentation of Mechanical Device: Venous foot pump, device Consult Discharge Plan - Plan Referrals: Maria C Cleary, ESAU [Primary Care Provider] -
[2017-12-17] MEDS: Levofloxacin 750 MG/150 ML 750 MG/150 ML BAG IVPB SCH ×2 (18:14→18:21)
[2017-12-17] MEDS ORDERED: Lidocaine -MPF 1% 5 ML AMPUL INFILT ONE (18:46)
[2017-12-17] MEDS ORDERED: levoFLOXacin 750 MG TABLET PO ONE (18:49)
[2017-12-17] MEDS: Nicotine 21 MG PATCH.TD24 TD SCH (20:11)
[2017-12-17] MEDS: Sulfamethoxazole/Trimeth DS 1 EACH TABLET PO SCH (20:11)
[2017-12-18] MEDS: traMADol 50 MG TABLET PO PRN ×2 (02:43→17:36)
[2017-12-18] MEDS: *HR* Enoxaparin 40 MG/0.4 ML SYRINGE SQ SCH (06:41)
[2017-12-18] MEDS ORDERED: Aminoglycoside Consult 1 EACH MC ONE (07:02)
[2017-12-18] MEDS: Insulin LISPRO 300 UNITS/3 ML VIAL SQ SCH ×4 (08:31→21:00)
[2017-12-18] MEDS: Sulfamethoxazole/Trimeth DS 1 EACH TABLET PO SCH ×2 (08:32→20:09)
[2017-12-18] MEDS: Gabapentin 100 MG CAPSULE PO SCH ×3 (08:32→20:09)
[2017-12-18] MEDS: *HR* HYDROcodone/Acet 5/325 mg TABLET PO PRN (11:55)
[2017-12-18] MEDS: Levofloxacin 750 MG/150 ML 750 MG/150 ML BAG IVPB SCH (11:57)
--- NOTE | 2017-12-18 14:54 | Discharge Summary ---
Date of Encounter: 12/18/17 Time of Encounter: 12:00 - NOTES TO OUTPATIENT PROVIDER Notes to Outpatient Provider: Will need to follow up with in podiatry clinic 1 week after discharge. Follow up with PCP after discharge Orders not resulted at time of discharge: Pending orders 12/15/17 17:16 Culture,Anaerobic [RM] Routine - Discharge Diagnosis (1) Abscess of foot without toes, left Priority: Primary Status: Acute Comments: Incision and drainage/debridement of necrotic nonviable tissue, left foot. 12/15 The patient will need to remain nonweightbearing. Patients wound vac was removed to be changed at bedside, patient had pain medication 20 min prior to removal, patient refused reapplication of wound vac, refused packing with mesalt- Explained this could delay healing or cause improper healing causing further surgical intervention, delayed healing, continued infection, loss of limb, sepsis or Verbalized understanding Does not want wound vac replaced Patient was very verbal and angry with any light touch of his foot Cleansed with saline, refused to allow foot to be touched to be painted with betadine, adaptic, 4x4 and kerlix applied for protection Will write orders for daily change Patient will possibly need another washout on Sunday. The patient will need at least 2 weeks of IV antibiotic therapy due to the severity of the infection. Patient will need to stay off work until the site heals which will be at least 3 weeks. Per internal medicine: will d/c him to ECF with IV Levaquin x 2 weeks course with PO Bactrim x 2 weeks - prescriptions printed Procedures and tests throughout hospitalization: Foot X-Ray 12/14/17 14:57 IMPRESSION: No evidence of focal soft tissue abnormality or soft tissue gas. No specific radiographic evidence of osteomyelitis. D/ / 12/14/2017 15:56:22 Nicho Byrne MD / derick Interpreting Provider: Nicho Byrne MD Labs on day of discharge: Labs from last 24 hours 12/18/17 12/17/17 12/17/17 07:44 19:57 16:12 POC Glucose 166 H 212 H 175 H 12/17/17 12/17/17 12:12 07:57 POC Glucose 162 H 163 H Preliminary micro results at discharge 12/15/17 17:16 Anaerobic Culture - Preliminary Left Foot At this time, no anaerobic growth is present. The culture will be finalized after 5 days of incubation. - Impressions ITS Impressions Foot X-Ray 12/14/17 14:57 IMPRESSION: No evidence of focal soft tissue abnormality or soft tissue gas. No specific radiographic evidence of osteomyelitis. D/ / 12/14/2017 15:56:22 Nicho Byrne MD / derick Interpreting Provider: Nicho Byrne MD - Hospital Course Hospital course: Mr. Torres is a 52 year old male who was admitted to [facility] on 12/14/[address] Najera. Patient was admitted for an ulcer to the left foot first mtpj. Hospitalist services were contacted for medical management and Zosyn and vancomycin were started. Dr. campbell was consulted on 12/15/2017 for surgical management of ulceration of left foot. On 12/15/2017 and I&D was completed of the left foot ulceration for removal and necrotic and nonviable tissue and open wound VAC was placed this time. On 12/18/2017 wound VAC was due to be changed. Upon removal of the wound VAC per Chichi Caputo CNP , patient refused to have wound VAC replaced. Patient was given pain pill 20 minutes prior to procedure. Patient states he cannot tolerate the pain. Patient was advised of possible complications of removal of wound VAC without replacement. Patient also refused packing with iodoform gauze. Patient again instructed a possible complications including loss of limb continued infection and . Cleansed site with betadine and adaptic and 4x4 was applied. Patient will be discharged on IV Levaquin prescription was written per internal medicine. Patient will need to follow up next week with Dr. campbell in the clinic. Patient will possibly need a second washout. Patient will be discharged in stable condition. No issues are noted at this time. Vital signs are stable lab work is stable at this time. Time spent discussing smoking cessation with patient: 3 to 10 minutes - Time Spent with Patient Total time spent providing and/or coordinating discharge services: Greater than 30 minutes Specific discharge activities: NWB of the left foot - Discharge Medications Prescriptions: HYDROcodone/Acet 5/325 mg [[place] 5-325 mg] 1 tab PO Q8H PRN 5 Days #15 tablet PRN Reason: Pain Levofloxacin 750 MG/150 ML [Levaquin Premix 750mg/150 mL] 750 mg IVPB DAILY #13 bag Sulfamethoxazole/Trimeth DS [Bactrim Ds] 1 each PO BID #26 tablet Home Medications: Lovastatin [Mevacor] 20 mg PO HS 12/12/17 [History] Gabapentin [Neurontin] 100 mg PO TID 12/14/17 [History] Glimepiride [Amaryl] 1 mg PO DAILY 12/14/17 [History] Metformin HCl [Glucophage] 1,000 mg PO BID 12/14/17 [History] HYDROcodone/Acet 5/325 mg [[place] 5-325 mg] 1 tab PO Q8H PRN 5 Days #15 tablet [Rx] Levofloxacin 750 MG/150 ML [Levaquin Premix 750mg/150 mL] 750 mg IVPB DAILY #13 bag 12/17/17 [Rx] Nicotine Patch [Nicoderm] 21 mg TD Q24H patch.td24 12/17/17 [Rx] Sulfamethoxazole/Trimeth DS [Bactrim Ds] 1 each PO BID #26 tablet 12/17/17 [Rx] Allergies/Adverse Reactions: 3 Allergy/AdvReac Type Severity Reaction Status Date / Time No Known Allergies Allergy Verified 12/12/17 12:01 Date of admission: 12/16/17 16:01 Primary care physician: Maria C Cleary Consults: 12/14/17 14:54 Consult to Hospitalist [CONS] Routine Consulting Provider: Hospitalist Stepan Reason for Consult: Diabetes mellitus type 2 with multiple comorbidities Time Notified: 14:56 Call Completed: Yes 12/14/17 16:35 Consult to Diabetes Education [CONS] Routine Comment: Reason for Consult: Diet education. 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 12/17/17 18:56 Consult to Invasive Line Access Team [CONS] Routine Reason for Consult: fdc antibiotics Line Type: EPIV 12/18/17 09:00 Consult to Invasive Line Access Team [CONS] Routine Reason for Consult: Picc Line Insertion Line Type: PICC Discharging clinician: Lia Caputo Anticipated date of discharge: 12/18/17 - Patient Status Disposition: Transfer SNF Condition: Good Functional capacity at discharge: uses cane/walker Overall status at discharge: patient is progressing back to baseline - Discharge Instructions Follow Up With: Wenceslao Campbell DPM [Partnered Physician] - 12/26/17 9:15 am Additional Instructions: Will need to follow up with podiatryDr.Sessions 1 week after discharge Possible plan to return to surgery next sunday - Diet and Activity Activity: other (NWB LLE) Diet: diabetic diet - VTE Documentation of Mechanical Device: Venous foot pump, device
--- NOTE | 2017-12-18 15:05 | Physician Discharge Referral ---
ExtendedCare Referral Info Transfer To: ecf Provider in Charge after Transfer: PCP Institutional Level of Care: Skilled - Diagnosis (1) Abscess of foot without toes, left Status: Acute Prognosis: Good Aware of Diagnosis: Patient Aware of Prognosis: Patient - Transfer Medications Prescriptions: HYDROcodone/Acet 5/325 mg [[place] 5-325 mg] 1 tab PO Q8H PRN 5 Days #15 tablet PRN Reason: Pain Levofloxacin 750 MG/150 ML [Levaquin Premix 750mg/150 mL] 750 mg IVPB DAILY #13 bag Sulfamethoxazole/Trimeth DS [Bactrim Ds] 1 each PO BID #26 tablet Home Medications: Lovastatin [Mevacor] 20 mg PO HS 12/12/17 [History] Gabapentin [Neurontin] 100 mg PO TID 12/14/17 [History] Glimepiride [Amaryl] 1 mg PO DAILY 12/14/17 [History] Metformin HCl [Glucophage] 1,000 mg PO BID 12/14/17 [History] HYDROcodone/Acet 5/325 mg [[place] 5-325 mg] 1 tab PO Q8H PRN 5 Days #15 tablet [Rx] Levofloxacin 750 MG/150 ML [Levaquin Premix 750mg/150 mL] 750 mg IVPB DAILY #13 bag 12/17/17 [Rx] Nicotine Patch [Nicoderm] 21 mg TD Q24H patch.td24 12/17/17 [Rx] Sulfamethoxazole/Trimeth DS [Bactrim Ds] 1 each PO BID #26 tablet 12/17/17 [Rx] Allergies/Adverse Reactions: 3 Allergy/AdvReac Type Severity Reaction Status Date / Time No Known Allergies Allergy Verified 12/12/17 12:01 - Respiratory Orders Smoking Cessation: Smoking cessation has been advised. For more information, call the [place] Tobacco Quit Line at 0-244-YNMJ-NOW. - Advance Directives Code Status: Full Code - Mobility Orders Chair - Rehabiliation Orders Rehab Potential: Good Rehab Orders: Evaluation for Physical Therapy Other: nonweightbearing to affected foot - Treatments List/Other: change dressings daily with wet to dry dressings. - Diet Orders Regular CERTIFICATION: I certify that the transfer of the above named patient to an Extended Care Facility is necessary for the continuing treatment of the diagnosis listed. The above information is true and accurate reflection of patient's current condition. yes Confidential - Redisclosure prohibited without a patient's written consent.
[2017-12-18] MEDS: Nicotine 21 MG PATCH.TD24 TD SCH (20:09)
[2017-12-19] MEDS: *HR* HYDROcodone/Acet 5/325 mg TABLET PO PRN ×3 (00:20→23:02)
[2017-12-19] MEDS: *HR* Enoxaparin 40 MG/0.4 ML SYRINGE SQ SCH (05:54)
[2017-12-19] MEDS: Levofloxacin 750 MG/150 ML 750 MG/150 ML BAG IVPB SCH (08:07)
[2017-12-19] MEDS: Sulfamethoxazole/Trimeth DS 1 EACH TABLET PO SCH ×2 (08:07→20:56)
[2017-12-19] MEDS: Gabapentin 100 MG CAPSULE PO SCH ×3 (08:07→20:56)
[2017-12-19] MEDS: Insulin LISPRO 300 UNITS/3 ML VIAL SQ SCH ×4 (08:08→20:57)
[2017-12-19] MEDS: traMADol 50 MG TABLET PO PRN (14:21)
[2017-12-19] MEDS: Pantoprazole 40 MG VIAL IVP SCH (20:54)
[2017-12-19] MEDS: Nicotine 21 MG PATCH.TD24 TD SCH (20:54)
[2017-12-20] MEDS: traMADol 50 MG TABLET PO PRN ×2 (01:44→15:10)
[2017-12-20] MEDS: *HR* Enoxaparin 40 MG/0.4 ML SYRINGE SQ SCH (05:21)
[2017-12-20] MEDS: Insulin LISPRO 300 UNITS/3 ML VIAL SQ SCH ×2 (08:14→12:02)
[2017-12-20] MEDS: Sulfamethoxazole/Trimeth DS 1 EACH TABLET PO SCH (08:15)
[2017-12-20] MEDS: Gabapentin 100 MG CAPSULE PO SCH (08:15)
[2017-12-20] MEDS: Levofloxacin 750 MG/150 ML 750 MG/150 ML BAG IVPB SCH (08:15)
[2017-12-20] MEDS: Pantoprazole 40 MG VIAL IVP SCH (08:15)
[2017-12-20] MEDS: *HR* HYDROcodone/Acet 5/325 mg TABLET PO PRN (10:24)
[2017-12-20 10:40] VITALS: BP 108/71
== END 2017-12-20 15:52 | DRG 364 ==
LOC: 3ANU → SUATTDRO 12-16 16:01
PROVIDERS: ADMIT Podiatrist Foot Surgery; ATTEND Family Medicine

== ENCOUNTER 2020-01-27 13:38 | Observation (INO) ==
[2020-01-27] MEDS ORDERED: methocarbamoL 750 MG TABLET PO PRN (15:41)
[2020-01-27] MEDS ORDERED: Ondansetron 4 MG/2 ML VIAL IVP PRN (15:42)
[2020-01-27] MEDS ORDERED: MOM Conc 10 ML UD.LIQ PO PRN (15:42)
[2020-01-27] MEDS ORDERED: Naloxone 0.4 MG/ML INJ IVP PRN (15:42)
[2020-01-27] MEDS ORDERED: *HR* Promethazine 25 MG/ML VIAL IVP PRN (15:42)
[2020-01-27] MEDS ORDERED: Mag Hydrox/Al Hydrox/Simeth 30 ML UDC PO PRN (15:42)
[2020-01-27] MEDS ORDERED: Dextrose Gel 15 GM/37.5 ML TUBE PO PRN ×2 (15:44)
[2020-01-27] MEDS ORDERED: D5% in Water 1,000 ML IVC PRN (15:44)
[2020-01-27] MEDS ORDERED: *HR* Dextrose 50 % in Water (Vial) 50 ML VIAL IVP PRN (15:44)
[2020-01-27] MEDS ORDERED: Perflutren Lipid Microsphere 1.3 ML in 0.9 % Sodium Chloride 8.7 ML IVP PRN (15:46)
[2020-01-27] MEDS: *HR* Heparin 5,000 UNIT/ML VIAL SQ SCH (16:39)
[2020-01-27] MEDS: Insulin LISPRO 300 UNITS/3 ML VIAL SQ SCH (17:45)
[2020-01-27] MEDS ORDERED: Insulin LISPRO 300 UNITS/3 ML VIAL SQ SCH (21:00)
[2020-01-28 03:22] LABS: BUN/Creatinine Ratio 16 (6-26); Blood Urea Nitrogen 10 mg/dL (6-20); Calcium 8.5 mg/dL (8.6-10.3); Carbon Dioxide 26 mEq/L (23-29); Chloride 106 mEq/L (98-107); Chol/HDL Ratio 5.3 (0-4.9); Cholesterol 149 mg/dL (< 200); Glucose 181 mg/dL (70-105); HDL Cholesterol 28 mg/dL (40-59); LDL Cholesterol,Calculated 85 mg/dL (< 100); Osmolality,Calculated 290 (280-300); Phosphorous 3.3 mg/dL (2.7-4.5); Potassium 3.8 mEq/L (3.5-5.1); Sodium 138 mEq/L (136-145); Triglycerides 180 mg/dL (< 150); eGFR For African Americans > 60 (> 60); eGFR For Non-African Americans > 60 (> 60)
[2020-01-28] MEDS: *HR* Heparin 5,000 UNIT/ML VIAL SQ SCH (06:10)
[2020-01-28] MEDS ORDERED: Regadenoson 0.4 MG/5 ML SYRINGE IVP ONE (06:23)
[2020-01-28] MEDS: Insulin LISPRO 300 UNITS/3 ML VIAL SQ SCH ×2 (08:45→12:58)
[2020-01-28] MEDS ORDERED: Aspirin Enteric Coated 81 MG Tablet PO SCH (09:00)
[2020-01-28 11:14] LABS: Estimated Average Glucose 206 mg/dl; Hemoglobin A1C 8.8 %
[2020-01-28 15:41] VITALS: BP 131/81
== END 2020-01-28 17:44 | disposition home or self-care (01) ==
LOC: 3BNU
PROVIDERS: ADMIT Internal Medicine; ATTEND Internal Medicine

== ENCOUNTER 2021-10-20 21:26 | Inpatient (IN) ==
[2021-10-20 23:47] LABS: Basophils # 0.1 K/mcL (0.0-0.2); Basophils % 0.5 %; Eosinophils # 0.1 K/mcL (0.0-0.6); Eosinophils % 0.7 %; Hematocrit 41.1 % (37.5-50.1); Hemoglobin 14.1 g/dL (12.9-16.9); Immature Granulocytes % 0.5 % (0-4); Lymphocytes # 1.6 K/mcL (0.6-4.6); Lymphocytes % 13.4 %; Mean Corpuscular HGB Conc 34.3 g/dL (31.6-35.5); Mean Corpuscular Hemoglobin 30.7 pg (28.0-33.3); Mean Corpuscular Volume 89.5 fL (83.0-100.0); Mean Platelet Volume 9.8 fL (9.4-12.4); Monocytes # 0.8 K/mcL (0.0-1.3); Monocytes % 6.9 %; Neutrophils # 9.4 K/mcL (1.6-8.9); Platelet Count 212 K/mcL (140-400); Red Blood Count 4.59 M/mcL (4.19-5.50); Red Cell Distribution Width 12.8 % (11.5-14.5)
[2021-10-21 00:02] LABS: Alanine Aminotransferase 15 Units/L (7-52); Albumin 3.7 g/dL (3.5-5.7); Albumin/Globulin Ratio 0.8 (1.1-2.2); Alkaline Phosphatase 31 Units/L (34-104); Aspartate Amino Transferase 13 Units/L (13-39); BUN/Creatinine Ratio 17 (6-26); Blood Urea Nitrogen 14 mg/dL (6-20); Calcium 8.7 mg/dL (8.6-10.3); Carbon Dioxide 23 mEq/L (23-29); Chloride 101 mEq/L (98-107); Globulin 4.4 g/dL (2.4-3.5); Glucose 182 mg/dL (70-105); Osmolality,Calculated 279 (280-300); Sodium 132 mEq/L (136-145); Total Protein 8.1 g/dL (6.4-8.9); eGFR For African Americans > 60 (> 60); eGFR For Non-African Americans > 60 (> 60)
[2021-10-21] MEDS ORDERED: *HR* HYDROcodone/Acet 5/325 mg TABLET PO ONE (00:40)
[2021-10-21] MEDS ORDERED: Piperacillin/Tazobactam 3.375 GM in 0.9 % Sodium Chloride Mini Bag 100 ML IVPB ONE (01:37)
[2021-10-21] MEDS ORDERED: Vancomycin 2,000 MG/520 ML IV.SOLN IVPB ONE (02:00)
[2021-10-21] MEDS: Morphine Sulfate 2 MG/ML SYRINGE IVP SCH (02:13)
[2021-10-21] MEDS ORDERED: Melatonin 3 MG TABLET PO PRN ×2 (02:21→19:55)
[2021-10-21] MEDS ORDERED: Naloxone 0.4 MG/ML INJ IVP PRN ×2 (02:21→19:55)
[2021-10-21] MEDS ORDERED: Clindamycin 600 MG/50 ML 600 MG/50 ML IV.SOLN IVPB ONE (02:22)
[2021-10-21] MEDS ORDERED: Acetaminophen 325 MG TABLET PO PRN (02:28)
[2021-10-21] MEDS ORDERED: *HR* OxyCODONE Immed Rel 5 MG TABLET PO PRN ×2 (02:29)
[2021-10-21] MEDS ORDERED: D5% in Water 1,000 ML IVC PRN ×2 (02:30→19:55)
[2021-10-21] MEDS ORDERED: *HR* Dextrose 50 % in Water (Syg) 50 ML SYRINGE IVP PRN ×2 (02:30→19:55)
[2021-10-21] MEDS ORDERED: Dextrose 4 GM Chewable Tablets PO PRN ×4 (02:30→19:55)
[2021-10-21 02:42] LABS: Creatine Kinase 72 Units/L (30-223)
[2021-10-21] MEDS ORDERED: Insulin LISPRO 300 UNITS/3 ML VIAL SUBQ SCH (06:00)
[2021-10-21] MEDS ORDERED: 0.9 % Sodium Chloride 1,000 ML IVC SCH (07:45)
[2021-10-21] MEDS ORDERED: Nicotine 7 MG PATCH.TD24 TD SCH (09:00)
[2021-10-21] MEDS: Piperacillin/Tazobactam 3.375 GM in 0.9 % Sodium Chloride Mini Bag 100 ML IVPB SCH ×2 (09:26→17:31)
[2021-10-21] MEDS: Clindamycin 600 MG/50 ML 600 MG/50 ML IV.SOLN IVPB SCH ×3 (09:27→23:27)
[2021-10-21 09:31] LABS: Estimated Average Glucose 226 mg/dl; Hemoglobin A1C 9.5 %
[2021-10-21] MEDS: Insulin LISPRO 300 UNITS/3 ML VIAL SUBQ SCH ×3 (12:07→23:27)
[2021-10-21] MEDS ORDERED: Vancomycin 1,500 MG/265 ML IV.SOLN IVPB SCH (14:00)
[2021-10-21] MEDS ORDERED: *HR* Heparin 5,000 UNIT/ML VIAL SQ SCH (18:00)
[2021-10-21] MEDS ORDERED: *HR* FentaNYL (PF) 100 MCG/2 ML VIAL ONE (18:27)
[2021-10-21] MEDS ORDERED: Lidocaine -MPF 2% 5 ML VIAL ONE (18:27)
[2021-10-21] MEDS ORDERED: Bupivacaine/EPI 1:200k 0.25% 50 ML VIAL ONE (18:30)
[2021-10-21] MEDS ORDERED: Vancomycin 1,000 MG VIAL ONE (18:31)
[2021-10-21] MEDS: *HR* OxyCODONE Immed Rel 5 MG TABLET PO PRN (21:31)
[2021-10-21] MEDS: 0.9 % Sodium Chloride 1,000 ML IVC SCH (23:33)
[2021-10-22] MEDS ORDERED: Insulin LISPRO 300 UNITS/3 ML VIAL SUBQ SCH
[2021-10-22] MEDS: Vancomycin 1,500 MG/265 ML IV.SOLN IVPB SCH (01:20)
[2021-10-22] MEDS: Piperacillin/Tazobactam 3.375 GM in 0.9 % Sodium Chloride Mini Bag 100 ML IVPB SCH ×3 (01:20→17:15)
[2021-10-22] MEDS: *HR* OxyCODONE Immed Rel 5 MG TABLET PO PRN ×3 (03:30→18:13)
[2021-10-22] MEDS: *HR* Heparin 5,000 UNIT/ML VIAL SQ SCH ×2 (05:05→17:16)
[2021-10-22 06:40] LABS: Basophils # 0.1 K/mcL (0.0-0.2); Basophils % 0.5 %; Eosinophils # 0.2 K/mcL (0.0-0.6); Eosinophils % 1.9 %; Hematocrit 35.7 % (37.5-50.1); Immature Granulocytes % 0.4 % (0-4); Lymphocytes # 1.5 K/mcL (0.6-4.6); Lymphocytes % 15.6 %; Mean Corpuscular HGB Conc 33.9 g/dL (31.6-35.5); Mean Corpuscular Hemoglobin 30.6 pg (28.0-33.3); Mean Corpuscular Volume 90.2 fL (83.0-100.0); Mean Platelet Volume 9.9 fL (9.4-12.4); Monocytes # 0.7 K/mcL (0.0-1.3); Monocytes % 7.9 %; Neutrophils # 6.9 K/mcL (1.6-8.9); Platelet Count 179 K/mcL (140-400); Red Blood Count 3.96 M/mcL (4.19-5.50); Red Cell Distribution Width 12.8 % (11.5-14.5); Segmented Neutrophils % 73.7 %; White Blood Count 9.4 K/mcL (4.3-11.1)
[2021-10-22 06:44] LABS: Hemoglobin 12.1 g/dL (12.9-16.9)
[2021-10-22 07:03] LABS: BUN/Creatinine Ratio 18 (6-26); Blood Urea Nitrogen 12 mg/dL (6-20); Carbon Dioxide 24 mEq/L (23-29); Chloride 103 mEq/L (98-107); Glucose 179 mg/dL (70-105); Osmolality,Calculated 282 (280-300); Phosphorous 2.2 mg/dL (2.7-4.5); Potassium 3.9 mEq/L (3.5-5.1); Sodium 134 mEq/L (136-145); eGFR For African Americans > 60 (> 60); eGFR For Non-African Americans > 60 (> 60)
[2021-10-22] MEDS: Nicotine 7 MG PATCH.TD24 TD SCH (07:44)
[2021-10-22] MEDS: Clindamycin 600 MG/50 ML 600 MG/50 ML IV.SOLN IVPB SCH ×3 (07:46→23:21)
[2021-10-22] MEDS: Insulin LISPRO 300 UNITS/3 ML VIAL SUBQ SCH ×4 (07:48→20:26)
[2021-10-22] MEDS: Vancomycin 2,000 MG/520 ML IV.SOLN IVPB SCH (15:16)
[2021-10-22] MEDS: 0.9 % Sodium Chloride 1,000 ML IVC SCH (15:16)
[2021-10-22] MEDS: tiZANidine 4 MG TABLET PO PRN (20:31)
[2021-10-22] MEDS: Acetaminophen 325 MG TABLET PO PRN (20:31)
[2021-10-23] MEDS: Piperacillin/Tazobactam 3.375 GM in 0.9 % Sodium Chloride Mini Bag 100 ML IVPB SCH ×3 (01:48→17:42)
[2021-10-23] MEDS: *HR* OxyCODONE Immed Rel 5 MG TABLET PO PRN ×4 (01:48→23:39)
[2021-10-23] MEDS: Vancomycin 2,000 MG/520 ML IV.SOLN IVPB SCH ×2 (01:49→15:53)
[2021-10-23 01:52] LABS: Hematocrit 34.3 % (37.5-50.1); Hemoglobin 11.2 g/dL (12.9-16.9); Mean Corpuscular HGB Conc 32.7 g/dL (31.6-35.5); Mean Corpuscular Hemoglobin 29.6 pg (28.0-33.3); Mean Corpuscular Volume 90.5 fL (83.0-100.0); Mean Platelet Volume 9.8 fL (9.4-12.4); Platelet Count 169 K/mcL (140-400); Red Blood Count 3.79 M/mcL (4.19-5.50); Red Cell Distribution Width 12.8 % (11.5-14.5); White Blood Count 7.2 K/mcL (4.3-11.1)
[2021-10-23 02:13] LABS: BUN/Creatinine Ratio 15 (6-26); Blood Urea Nitrogen 10 mg/dL (6-20); Calcium 7.9 mg/dL (8.6-10.3); Carbon Dioxide 24 mEq/L (23-29); Chloride 105 mEq/L (98-107); Glucose 195 mg/dL (70-105); Osmolality,Calculated 284 (280-300); Potassium 3.8 mEq/L (3.5-5.1); Sodium 135 mEq/L (136-145); eGFR For African Americans > 60 (> 60); eGFR For Non-African Americans > 60 (> 60)
[2021-10-23] MEDS: *HR* Heparin 5,000 UNIT/ML VIAL SQ SCH ×2 (05:29→16:40)
[2021-10-23] MEDS: Metoprolol XL (24 HR) Succ 25 MG TAB.ER.24H PO SCH (08:31)
[2021-10-23] MEDS: Insulin LISPRO 300 UNITS/3 ML VIAL SUBQ SCH ×4 (08:31→20:28)
[2021-10-23] MEDS: Aspirin Enteric Coated 81 MG Tablet PO SCH (08:31)
[2021-10-23] MEDS: Nicotine 7 MG PATCH.TD24 TD SCH (08:32)
[2021-10-23] MEDS: Clindamycin 600 MG/50 ML 600 MG/50 ML IV.SOLN IVPB SCH ×3 (08:33→23:34)
[2021-10-23] MEDS: 0.9 % Sodium Chloride 1,000 ML IVC SCH ×2 (11:33→11:38)
[2021-10-23] MEDS: Vancomycin 1,500 MG/265 ML IV.SOLN IVPB SCH (13:38)
[2021-10-23] MEDS: Morphine Sulfate 2 MG/ML SYRINGE IVP SCH (13:39)
[2021-10-23] MEDS: tiZANidine 4 MG TABLET PO PRN (14:51)
[2021-10-23] MEDS ORDERED: Insulin DETEMIR 100 UNIT/ML X5UNITS SUBQ SCH (21:00)
[2021-10-24] MEDS: Piperacillin/Tazobactam 3.375 GM in 0.9 % Sodium Chloride Mini Bag 100 ML IVPB SCH ×2 (00:42→08:03)
[2021-10-24 03:55] LABS: Basophils # 0.1 K/mcL (0.0-0.2); Basophils % 0.7 %; Eosinophils # 0.2 K/mcL (0.0-0.6); Eosinophils % 2.7 %; Hematocrit 35.9 % (37.5-50.1); Hemoglobin 11.7 g/dL (12.9-16.9); Immature Granulocytes % 0.4 % (0-4); Lymphocytes # 1.7 K/mcL (0.6-4.6); Lymphocytes % 23.6 %; Mean Corpuscular HGB Conc 32.6 g/dL (31.6-35.5); Mean Corpuscular Hemoglobin 29.7 pg (28.0-33.3); Mean Corpuscular Volume 91.1 fL (83.0-100.0); Mean Platelet Volume 9.8 fL (9.4-12.4); Monocytes # 0.5 K/mcL (0.0-1.3); Monocytes % 6.4 %; Neutrophils # 4.9 K/mcL (1.6-8.9); Platelet Count 200 K/mcL (140-400); Red Blood Count 3.94 M/mcL (4.19-5.50); Red Cell Distribution Width 12.5 % (11.5-14.5); Segmented Neutrophils % 66.2 %; White Blood Count 7.3 K/mcL (4.3-11.1)
[2021-10-24 04:18] LABS: Alanine Aminotransferase 23 Units/L (7-52); Albumin 3.3 g/dL (3.5-5.7); Albumin/Globulin Ratio 0.8 (1.1-2.2); Alkaline Phosphatase 31 Units/L (34-104); Aspartate Amino Transferase 19 Units/L (13-39); BUN/Creatinine Ratio 13 (6-26); Bilirubin,Total 0.5 mg/dL (0.3-1.0); Blood Urea Nitrogen 9 mg/dL (6-20); Calcium 8.1 mg/dL (8.6-10.3); Carbon Dioxide 25 mEq/L (23-29); Chloride 103 mEq/L (98-107); Glucose 169 mg/dL (70-105); Osmolality,Calculated 283 (280-300); Potassium 4.1 mEq/L (3.5-5.1); Sodium 135 mEq/L (136-145); Total Protein 7.3 g/dL (6.4-8.9); eGFR For African Americans > 60 (> 60); eGFR For Non-African Americans > 60 (> 60)
[2021-10-24] MEDS: 0.9 % Sodium Chloride 1,000 ML IVC SCH ×3 (04:34→22:45)
[2021-10-24] MEDS: Vancomycin 2,000 MG/520 ML IV.SOLN IVPB SCH ×2 (04:40→17:06)
[2021-10-24] MEDS: *HR* Heparin 5,000 UNIT/ML VIAL SQ SCH ×2 (05:47→17:11)
[2021-10-24] MEDS: *HR* OxyCODONE Immed Rel 5 MG TABLET PO PRN ×4 (05:50→21:52)
[2021-10-24] MEDS: Clindamycin 600 MG/50 ML 600 MG/50 ML IV.SOLN IVPB SCH ×3 (08:03→23:19)
[2021-10-24] MEDS: Metoprolol XL (24 HR) Succ 25 MG TAB.ER.24H PO SCH (08:04)
[2021-10-24] MEDS: Aspirin Enteric Coated 81 MG Tablet PO SCH (08:04)
[2021-10-24] MEDS: Nicotine 7 MG PATCH.TD24 TD SCH (08:04)
[2021-10-24] MEDS: Insulin LISPRO 300 UNITS/3 ML VIAL SUBQ SCH ×4 (08:08→20:43)
[2021-10-24] MEDS: Acetaminophen 325 MG TABLET PO PRN ×2 (12:01→20:38)
[2021-10-24] MEDS ORDERED: Piperacillin/Tazobactam 3.375 GM in 0.9 % Sodium Chloride Mini Bag 100 ML IVPB SCH (20:00)
[2021-10-24] MEDS: Insulin DETEMIR 100 UNIT/ML X5UNITS SUBQ SCH (22:39)
[2021-10-25] MEDS: Vancomycin 2,000 MG/520 ML IV.SOLN IVPB SCH (02:56)
[2021-10-25] MEDS ORDERED: *HR* HYDROmorphone 2 MG TABLET PO ONE (03:11)
[2021-10-25] MEDS: Clindamycin 600 MG/50 ML 600 MG/50 ML IV.SOLN IVPB SCH (05:06)
[2021-10-25] MEDS: *HR* Heparin 5,000 UNIT/ML VIAL SQ SCH ×2 (06:02→17:47)
[2021-10-25] MEDS: Nicotine 7 MG PATCH.TD24 TD SCH (08:05)
[2021-10-25] MEDS: Metoprolol XL (24 HR) Succ 25 MG TAB.ER.24H PO SCH (08:05)
[2021-10-25] MEDS: Aspirin Enteric Coated 81 MG Tablet PO SCH (08:05)
[2021-10-25] MEDS: Piperacillin/Tazobactam 3.375 GM in 0.9 % Sodium Chloride Mini Bag 100 ML IVPB SCH ×3 (08:05→22:50)
[2021-10-25] MEDS: Insulin LISPRO 300 UNITS/3 ML VIAL SUBQ SCH ×4 (08:06→20:48)
[2021-10-25] MEDS: *HR* OxyCODONE Immed Rel 5 MG TABLET PO PRN ×3 (09:58→22:50)
[2021-10-25] MEDS ORDERED: Clindamycin 600 MG/50 ML 600 MG/50 ML IV.SOLN IVPB SCH (12:00)
[2021-10-25] MEDS: 0.9 % Sodium Chloride 1,000 ML IVC SCH (20:47)
[2021-10-25] MEDS: Insulin DETEMIR 100 UNIT/ML X5UNITS SUBQ SCH (20:48)
[2021-10-25] MEDS: Acetaminophen 325 MG TABLET PO PRN (21:01)
[2021-10-25] MEDS: tiZANidine 4 MG TABLET PO PRN (22:50)
[2021-10-26] MEDS: *HR* OxyCODONE Immed Rel 5 MG TABLET PO PRN ×3 (06:26→18:46)
[2021-10-26] MEDS: *HR* Heparin 5,000 UNIT/ML VIAL SQ SCH ×2 (06:26→17:42)
[2021-10-26] MEDS: Piperacillin/Tazobactam 3.375 GM in 0.9 % Sodium Chloride Mini Bag 100 ML IVPB SCH (06:26)
[2021-10-26] MEDS: Insulin LISPRO 300 UNITS/3 ML VIAL SUBQ SCH ×4 (08:23→21:31)
[2021-10-26] MEDS: Nicotine 7 MG PATCH.TD24 TD SCH (08:23)
[2021-10-26] MEDS: Aspirin Enteric Coated 81 MG Tablet PO SCH (08:23)
[2021-10-26] MEDS: Metoprolol XL (24 HR) Succ 25 MG TAB.ER.24H PO SCH (08:23)
[2021-10-26] MEDS ORDERED: Gadolinium Contrast Agent (WT Based) IV PRN (08:29)
[2021-10-26] MEDS ORDERED: GADOBUTROL 30 MMOL/30 ML VIAL IVP ONE (09:24)
[2021-10-26] MEDS: 0.9 % Sodium Chloride 1,000 ML IVC SCH ×2 (09:57→10:43)
[2021-10-26] MEDS: tiZANidine 4 MG TABLET PO PRN ×2 (10:24→21:59)
[2021-10-26] MEDS: Acetaminophen 325 MG TABLET PO PRN (12:14)
[2021-10-26] MEDS: metroNIDAZOLE 500 MG TABLET PO SCH ×2 (14:50→21:28)
[2021-10-26] MEDS: CeFAZolin 2,000 MG/120 ML BAG IVPB SCH (16:03)
[2021-10-26] MEDS: Insulin DETEMIR 100 UNIT/ML X5UNITS SUBQ SCH (21:30)
[2021-10-27] MEDS: CeFAZolin 2,000 MG/120 ML BAG IVPB SCH ×4 (00:59→23:53)
[2021-10-27] MEDS: *HR* OxyCODONE Immed Rel 5 MG TABLET PO PRN ×4 (01:00→20:27)
[2021-10-27] MEDS: Acetaminophen 325 MG TABLET PO PRN ×2 (05:47→23:54)
[2021-10-27] MEDS: *HR* Heparin 5,000 UNIT/ML VIAL SQ SCH ×2 (05:47→16:55)
[2021-10-27 06:14] LABS: Hematocrit 37.1 % (37.5-50.1); Hemoglobin 12.3 g/dL (12.9-16.9); Mean Corpuscular HGB Conc 33.2 g/dL (31.6-35.5); Mean Corpuscular Hemoglobin 30.3 pg (28.0-33.3); Mean Corpuscular Volume 91.4 fL (83.0-100.0); Mean Platelet Volume 9.2 fL (9.4-12.4); Platelet Count 237 K/mcL (140-400); Red Blood Count 4.06 M/mcL (4.19-5.50); Red Cell Distribution Width 12.6 % (11.5-14.5); White Blood Count 7.8 K/mcL (4.3-11.1)
[2021-10-27 06:56] LABS: BUN/Creatinine Ratio 15 (6-26); Blood Urea Nitrogen 11 mg/dL (6-20); Calcium 8.8 mg/dL (8.6-10.3); Carbon Dioxide 27 mEq/L (23-29); Chloride 101 mEq/L (98-107); Glucose 189 mg/dL (70-105); Magnesium 1.8 mg/dL (1.6-2.6); Osmolality,Calculated 288 (280-300); Potassium 4.2 mEq/L (3.5-5.1); Sodium 137 mEq/L (136-145); eGFR For African Americans > 60 (> 60); eGFR For Non-African Americans > 60 (> 60)
[2021-10-27] MEDS: Nicotine 7 MG PATCH.TD24 TD SCH (09:08)
[2021-10-27] MEDS: Aspirin Enteric Coated 81 MG Tablet PO SCH (09:09)
[2021-10-27] MEDS: Metoprolol XL (24 HR) Succ 25 MG TAB.ER.24H PO SCH (09:09)
[2021-10-27] MEDS: metroNIDAZOLE 500 MG TABLET PO SCH ×3 (09:09→20:27)
[2021-10-27] MEDS: Insulin LISPRO 300 UNITS/3 ML VIAL SUBQ SCH ×4 (09:12→20:28)
[2021-10-27] MEDS: Insulin DETEMIR 100 UNIT/ML X5UNITS SUBQ SCH (20:29)
[2021-10-27] MEDS: tiZANidine 4 MG TABLET PO PRN (23:54)
[2021-10-28] MEDS: *HR* OxyCODONE Immed Rel 5 MG TABLET PO PRN ×4 (03:11→23:54)
[2021-10-28] MEDS: *HR* Heparin 5,000 UNIT/ML VIAL SQ SCH ×2 (06:00→17:42)
[2021-10-28] MEDS: Insulin LISPRO 300 UNITS/3 ML VIAL SUBQ SCH ×4 (08:20→21:34)
[2021-10-28] MEDS: Metoprolol XL (24 HR) Succ 25 MG TAB.ER.24H PO SCH (08:21)
[2021-10-28] MEDS: Aspirin Enteric Coated 81 MG Tablet PO SCH (08:21)
[2021-10-28] MEDS: metroNIDAZOLE 500 MG TABLET PO SCH ×3 (08:21→20:44)
[2021-10-28] MEDS: CeFAZolin 2,000 MG/120 ML BAG IVPB SCH ×3 (08:28→23:55)
[2021-10-28] MEDS ORDERED: Lidocaine -MPF 2% 2 ML VIAL ONE (10:28)
[2021-10-28] MEDS ORDERED: Bupivacaine/EPI 1:200k 0.25% 50 ML VIAL ONE (11:58)
[2021-10-28] MEDS ORDERED: Bupivacaine-MPF 0.25% 10 ML VIAL ONE (11:58)
[2021-10-28] MEDS ORDERED: *HR* FentaNYL (PF) 100 MCG/2 ML VIAL ONE (13:42)
[2021-10-28] MEDS ORDERED: Melatonin 3 MG TABLET PO PRN (14:31)
[2021-10-28] MEDS ORDERED: Gadolinium Contrast Agent (WT Based) IV PRN (14:31)
[2021-10-28] MEDS ORDERED: Naloxone 0.4 MG/ML INJ IVP PRN (14:31)
[2021-10-28] MEDS ORDERED: *HR* OxyCODONE Immed Rel 5 MG TABLET PO PRN ×2 (14:31→17:36)
[2021-10-28] MEDS ORDERED: Dextrose 4 GM Chewable Tablets PO PRN ×2 (14:31)
[2021-10-28] MEDS ORDERED: D5% in Water 1,000 ML IVC PRN (14:31)
[2021-10-28] MEDS ORDERED: *HR* Dextrose 50 % in Water (Syg) 50 ML SYRINGE IVP PRN (14:31)
[2021-10-28] MEDS: Nicotine 7 MG PATCH.TD24 TD SCH (14:55)
[2021-10-28] MEDS: Acetaminophen 325 MG TABLET PO PRN (16:56)
[2021-10-28] MEDS: tiZANidine 4 MG TABLET PO PRN (16:57)
[2021-10-28] MEDS ORDERED: Ketorolac 30 MG/ML VIAL IVP ONE (20:38)
[2021-10-28] MEDS: Insulin DETEMIR 100 UNIT/ML X5UNITS SUBQ SCH (20:45)
[2021-10-29] MEDS: Acetaminophen 325 MG TABLET PO PRN ×2 (04:39→23:36)
[2021-10-29] MEDS: *HR* Heparin 5,000 UNIT/ML VIAL SQ SCH ×2 (04:40→18:01)
[2021-10-29] MEDS: *HR* OxyCODONE Immed Rel 5 MG TABLET PO PRN ×4 (06:18→19:53)
[2021-10-29 07:13] LABS: Hematocrit 36.7 % (37.5-50.1); Hemoglobin 12.1 g/dL (12.9-16.9); Mean Corpuscular Volume 90.8 fL (83.0-100.0); Mean Platelet Volume 9.8 fL (9.4-12.4); Platelet Count 242 K/mcL (140-400); Red Blood Count 4.04 M/mcL (4.19-5.50); Red Cell Distribution Width 12.5 % (11.5-14.5); White Blood Count 6.4 K/mcL (4.3-11.1)
[2021-10-29 07:29] LABS: Total Protein 6.7 g/dL (6.4-8.9)
[2021-10-29 07:30] LABS: BUN/Creatinine Ratio 25 (6-26); Blood Urea Nitrogen 20 mg/dL (6-20); Calcium 8.9 mg/dL (8.6-10.3); Carbon Dioxide 25 mEq/L (23-29); Chloride 99 mEq/L (98-107); Glucose 299 mg/dL (70-105); Osmolality,Calculated 290 (280-300); Potassium 4.1 mEq/L (3.5-5.1); Sodium 133 mEq/L (136-145); eGFR For African Americans > 60 (> 60); eGFR For Non-African Americans > 60 (> 60)
[2021-10-29] MEDS: metroNIDAZOLE 500 MG TABLET PO SCH ×3 (08:20→19:29)
[2021-10-29] MEDS: CeFAZolin 2,000 MG/120 ML BAG IVPB SCH ×3 (08:20→23:36)
[2021-10-29] MEDS: Nicotine 7 MG PATCH.TD24 TD SCH (08:21)
[2021-10-29] MEDS: Aspirin Enteric Coated 81 MG Tablet PO SCH (08:21)
[2021-10-29] MEDS: Metoprolol XL (24 HR) Succ 25 MG TAB.ER.24H PO SCH (08:21)
[2021-10-29] MEDS: Insulin LISPRO 300 UNITS/3 ML VIAL SUBQ SCH ×4 (08:22→19:55)
[2021-10-29] MEDS ORDERED: Nicotine 7 MG PATCH.TD24 TD SCH (09:00)
[2021-10-29] MEDS: tiZANidine 4 MG TABLET PO PRN ×2 (10:16→23:36)
[2021-10-29] MEDS: Insulin DETEMIR 100 UNIT/ML X5UNITS SUBQ SCH (19:30)
[2021-10-30] MEDS: *HR* OxyCODONE Immed Rel 5 MG TABLET PO PRN ×4 (03:14→18:49)
[2021-10-30] MEDS: *HR* Heparin 5,000 UNIT/ML VIAL SQ SCH ×2 (05:39→18:19)
[2021-10-30] MEDS: CeFAZolin 2,000 MG/120 ML BAG IVPB SCH ×3 (08:42→23:24)
[2021-10-30] MEDS: metroNIDAZOLE 500 MG TABLET PO SCH ×3 (08:44→20:07)
[2021-10-30] MEDS: Metoprolol XL (24 HR) Succ 25 MG TAB.ER.24H PO SCH (08:44)
[2021-10-30] MEDS: Nicotine 7 MG PATCH.TD24 TD SCH (08:45)
[2021-10-30] MEDS: Aspirin Enteric Coated 81 MG Tablet PO SCH (08:45)
[2021-10-30] MEDS: Insulin LISPRO 300 UNITS/3 ML VIAL SUBQ SCH ×4 (08:46→20:08)
[2021-10-30] MEDS: tiZANidine 4 MG TABLET PO PRN ×2 (08:55→21:34)
[2021-10-30] MEDS: Insulin DETEMIR 100 UNIT/ML X5UNITS SUBQ SCH (20:08)
[2021-10-31] MEDS: Acetaminophen 325 MG TABLET PO PRN ×2 (00:09→19:34)
[2021-10-31] MEDS: *HR* OxyCODONE Immed Rel 5 MG TABLET PO PRN ×4 (01:59→21:33)
[2021-10-31] MEDS: *HR* Heparin 5,000 UNIT/ML VIAL SQ SCH ×2 (04:38→17:19)
[2021-10-31] MEDS: Insulin LISPRO 300 UNITS/3 ML VIAL SUBQ SCH ×4 (08:42→19:26)
[2021-10-31] MEDS: Nicotine 7 MG PATCH.TD24 TD SCH (08:42)
[2021-10-31] MEDS: CeFAZolin 2,000 MG/120 ML BAG IVPB SCH ×3 (08:42→23:31)
[2021-10-31] MEDS: metroNIDAZOLE 500 MG TABLET PO SCH ×3 (08:43→19:25)
[2021-10-31] MEDS: Aspirin Enteric Coated 81 MG Tablet PO SCH (08:43)
[2021-10-31] MEDS: Metoprolol XL (24 HR) Succ 25 MG TAB.ER.24H PO SCH (08:43)
[2021-10-31] MEDS ORDERED: *HR* Alteplase (Cathflo) 2 MG VIAL IVP ONE (12:30)
[2021-10-31] MEDS ORDERED: *HR* OxyCODONE Immed Rel 5 MG TABLET PO ONE (12:50)
[2021-10-31] MEDS: hydrOXYzine pamoate 25 MG CAPSULE PO PRN (13:37)
[2021-10-31 17:47] LABS: Basophils # 0.1 K/mcL (0.0-0.2); Basophils % 0.6 %; Eosinophils # 0.2 K/mcL (0.0-0.6); Eosinophils % 2.3 %; Hematocrit 39.6 % (37.5-50.1); Immature Granulocytes % 0.5 % (0-4); Lymphocytes # 1.6 K/mcL (0.6-4.6); Lymphocytes % 19.6 %; Mean Corpuscular HGB Conc 32.8 g/dL (31.6-35.5); Mean Corpuscular Hemoglobin 30.1 pg (28.0-33.3); Mean Corpuscular Volume 91.7 fL (83.0-100.0); Mean Platelet Volume 9.1 fL (9.4-12.4); Monocytes # 0.3 K/mcL (0.0-1.3); Monocytes % 4.2 %; Neutrophils # 5.9 K/mcL (1.6-8.9); Platelet Count 293 K/mcL (140-400); Red Blood Count 4.32 M/mcL (4.19-5.50); Red Cell Distribution Width 12.8 % (11.5-14.5); Segmented Neutrophils % 72.8 %; White Blood Count 8.1 K/mcL (4.3-11.1)
[2021-10-31 18:06] LABS: Alanine Aminotransferase 29 Units/L (7-52); Albumin 3.6 g/dL (3.5-5.7); Albumin/Globulin Ratio 0.9 (1.1-2.2); Alkaline Phosphatase 32 Units/L (34-104); Aspartate Amino Transferase 33 Units/L (13-39); BUN/Creatinine Ratio 17 (6-26); Bilirubin,Indirect 0.4 mg/dL (0.0-1.0); Bilirubin,Total 0.4 mg/dL (0.3-1.0); Blood Urea Nitrogen 15 mg/dL (6-20); Calcium 9.1 mg/dL (8.6-10.3); Carbon Dioxide 30 mEq/L (23-29); Chloride 96 mEq/L (98-107); Globulin 3.9 g/dL (2.4-3.5); Glucose 325 mg/dL (70-105); Magnesium 1.7 mg/dL (1.6-2.6); Osmolality,Calculated 287 (280-300); Potassium 4.5 mEq/L (3.5-5.1); Sodium 132 mEq/L (136-145); Total Protein 7.5 g/dL (6.4-8.9); eGFR For African Americans > 60 (> 60); eGFR For Non-African Americans > 60 (> 60)
[2021-10-31] MEDS: tiZANidine 4 MG TABLET PO PRN (19:25)
[2021-10-31] MEDS ORDERED: Insulin DETEMIR 100 UNIT/ML X5UNITS SUBQ SCH (21:00)
[2021-10-31] MEDS ORDERED: Ketorolac 30 MG/ML VIAL IVP ONE (23:34)
[2021-11-01] MEDS: *HR* OxyCODONE Immed Rel 5 MG TABLET PO PRN ×4 (04:31→23:38)
[2021-11-01] MEDS: *HR* Heparin 5,000 UNIT/ML VIAL SQ SCH ×2 (04:32→17:10)
[2021-11-01] MEDS: CeFAZolin 2,000 MG/120 ML BAG IVPB SCH ×3 (07:38→23:38)
[2021-11-01] MEDS: metroNIDAZOLE 500 MG TABLET PO SCH ×3 (07:39→20:41)
[2021-11-01] MEDS: Metoprolol XL (24 HR) Succ 25 MG TAB.ER.24H PO SCH (07:39)
[2021-11-01] MEDS: tiZANidine 4 MG TABLET PO PRN ×2 (07:39→15:35)
[2021-11-01] MEDS: Nicotine 7 MG PATCH.TD24 TD SCH (07:39)
[2021-11-01] MEDS: Aspirin Enteric Coated 81 MG Tablet PO SCH (07:39)
[2021-11-01] MEDS: Insulin LISPRO 300 UNITS/3 ML VIAL SUBQ SCH ×4 (07:51→20:43)
[2021-11-01] MEDS: Acetaminophen 325 MG TABLET PO PRN (20:40)
[2021-11-01] MEDS: Insulin DETEMIR 100 UNIT/ML X5UNITS SUBQ SCH (20:42)
[2021-11-01] MEDS: hydrOXYzine pamoate 25 MG CAPSULE PO PRN (20:57)
[2021-11-02] MEDS: *HR* Heparin 5,000 UNIT/ML VIAL SQ SCH ×2 (05:38→16:52)
[2021-11-02] MEDS: *HR* OxyCODONE Immed Rel 5 MG TABLET PO PRN ×4 (05:38→23:55)
[2021-11-02] MEDS: Nicotine 7 MG PATCH.TD24 TD SCH (09:04)
[2021-11-02] MEDS: metroNIDAZOLE 500 MG TABLET PO SCH ×3 (09:04→20:29)
[2021-11-02] MEDS: Aspirin Enteric Coated 81 MG Tablet PO SCH (09:04)
[2021-11-02] MEDS: Metoprolol XL (24 HR) Succ 25 MG TAB.ER.24H PO SCH (09:04)
[2021-11-02] MEDS: CeFAZolin 2,000 MG/120 ML BAG IVPB SCH ×3 (09:05→23:23)
[2021-11-02] MEDS: Insulin LISPRO 300 UNITS/3 ML VIAL SUBQ SCH ×4 (09:06→20:31)
[2021-11-02] MEDS: hydrOXYzine pamoate 25 MG CAPSULE PO PRN ×2 (11:32→17:45)
[2021-11-02] MEDS: Acetaminophen 325 MG TABLET PO PRN (16:50)
[2021-11-02] MEDS: Insulin DETEMIR 100 UNIT/ML X5UNITS SUBQ SCH (20:30)
[2021-11-02 23:37] VITALS: O2SAT 95
[2021-11-03] MEDS: Acetaminophen 325 MG TABLET PO PRN ×2 (02:51→10:31)
[2021-11-03] MEDS: tiZANidine 4 MG TABLET PO PRN (02:52)
[2021-11-03] MEDS: *HR* Heparin 5,000 UNIT/ML VIAL SQ SCH (05:04)
[2021-11-03] MEDS: *HR* OxyCODONE Immed Rel 5 MG TABLET PO PRN ×2 (06:33→12:35)
[2021-11-03] MEDS: CeFAZolin 2,000 MG/120 ML BAG IVPB SCH (08:25)
[2021-11-03] MEDS: Insulin LISPRO 300 UNITS/3 ML VIAL SUBQ SCH ×2 (08:25→12:53)
[2021-11-03] MEDS: Nicotine 7 MG PATCH.TD24 TD SCH (08:26)
[2021-11-03] MEDS: Aspirin Enteric Coated 81 MG Tablet PO SCH (08:26)
[2021-11-03] MEDS: Metoprolol XL (24 HR) Succ 25 MG TAB.ER.24H PO SCH (08:27)
[2021-11-03] MEDS: metroNIDAZOLE 500 MG TABLET PO SCH (08:27)
[2021-11-03 09:15] LABS: Alanine Aminotransferase 20 Units/L (7-52); Albumin 3.4 g/dL (3.5-5.7); Alkaline Phosphatase 26 Units/L (34-104); Aspartate Amino Transferase 25 Units/L (13-39); BUN/Creatinine Ratio 20 (6-26); Bilirubin,Total 0.5 mg/dL (0.3-1.0); Blood Urea Nitrogen 15 mg/dL (6-20); Calcium 8.6 mg/dL (8.6-10.3); Carbon Dioxide 27 mEq/L (23-29); Chloride 102 mEq/L (98-107); Globulin 3.5 g/dL (2.4-3.5); Glucose 196 mg/dL (70-105); Osmolality,Calculated 286 (280-300); Potassium 4.3 mEq/L (3.5-5.1); Sodium 135 mEq/L (136-145); Total Protein 6.9 g/dL (6.4-8.9); eGFR For African Americans > 60 (> 60); eGFR For Non-African Americans > 60 (> 60)
[2021-11-03] MEDS: hydrOXYzine pamoate 25 MG CAPSULE PO PRN (10:06)
[2021-11-03 11:54] VITALS: BP 123/80; PULSE 69; TEMP 98
[2021-11-03] MEDS ORDERED: Insulin DETEMIR 100 UNIT/ML X5UNITS SUBQ SCH (21:00)
== END 2021-11-03 13:30 | disposition home health service (06) | DRG 710 ==
LOC: 3ANU 21:26 → EMEROOARM 21:26 → SUATTDRO 10-21 02:59 → 3ANU 10-21 04:03 → SUATTDRO 10-21 07:31
PROVIDERS: ADMIT Student in an Organized Health Care Education/Training Program; ATTEND Family Medicine